=== PATIENT | female | born 1990 | race African-American/Black ===

== ENCOUNTER 2016-08-10 20:28 | Emergency (ER) | payer OTHER ==
[2016-08-10] MEDS ORDERED: ONDANSETRON ODT 4 MG TAB PO STA (21:23)
[2016-08-10] MEDS ORDERED: DICYCLOMINE 20 MG TAB PO STA (21:23)
--- NOTE | 2016-08-10 21:29 | ED ---
Nausea/Vomiting/Diarrhea HPI - General Chief complaint: Nausea/Vomiting/Diarrhea Stated complaint: Nausea Time Seen by Provider: 08/10/16 21:10 Source: patient Mode of arrival: ambulatory Limitations: no limitations - History of Present Illness Initial comments: This patient is a 25-year-old woman who presents to be evaluated because she has not been feeling quite herself for a few days now. The patient states she has been feeling nauseated, she has also had a little bit of a bilateral lower quadrant bloating feeling. At one point earlier when she stood up she felt a little bit lightheaded like she was going to faint. She states that she sat back down again and did not faint and the sensation passed. The patient also has been having some irregular menstrual spotting going on for about 3 weeks. The patient state states it is possible she may be or she thinks she may have eaten something that was not quite right. Patient denies fever or chills. She did have an episode of vomiting 2 days ago but nothing since though she does remain nauseated. Patient denies change to her bowel movements , but states she may be a little constipated. MD complaint: nausea, vomiting Onset/Timin -: days(s) - Related Data Previous Rx's Medication Instructions Recorded Ondansetron Odt [Zofran ODT] 4 mg PO Q8HR PRN #10 tab 08/10/16 Allergies Allergy/AdvReac Type Severity Reaction Status Date / Time No Known Allergies Allergy Verified 08/10/16 21:14 Review of Systems ROS Statement: Those systems with pertinent positive or pertinent negative responses have been documented in the HPI. ROS Other: All systems not noted in ROS Statement are negative. Constitutional: Denies: fever, chills Respiratory: Denies: cough, dyspnea Cardiovascular: Denies: chest pain, palpitations, orthopnea, edema, syncope Gastrointestinal: Reports: as per HPI, abdominal pain, nausea, vomiting, constipation. Denies: diarrhea, hematemesis, melena, hematochezia Genitourinary: Denies: dysuria, hematuria Musculoskeletal: Denies: back pain Skin: Denies: rash Neurological: Denies: headache, weakness, abnormal gait, vertigo Past Medical History Past Medical History: No Reported History History of Any Multi-Drug Resistant Organisms: None Reported Past Surgical History: No Surgical Hx Reported Past Anesthesia/Blood Transfusion Reactions: No Reported Reaction Past Psychological History: Anxiety, Bipolar, Depression Smoking Status: Never smoker Past Alcohol Use History: Rare Past Drug Use History: Marijuana - Past Family History Father Family Medical History: No Reported History Mother Family Medical History: Unable to Obtain Brother(s) Family Medical History: No Reported History General Exam Limitations: no limitations General appearance: alert, in no apparent distress Head exam: Present: atraumatic, normocephalic Eye exam: Present: normal appearance, PERRL, EOMI. Absent: scleral icterus, conjunctival injection, nystagmus ENT exam: Present: normal oropharynx, mucous membranes moist Neck exam: Present: normal inspection Respiratory exam: Present: normal lung sounds bilaterally. Absent: respiratory distress, wheezes, rales, rhonchi, stridor Cardiovascular Exam: Present: regular rate, normal rhythm, normal heart sounds. Absent: systolic murmur, diastolic murmur, rubs, gallop GI/Abdominal exam: Present: soft, normal bowel sounds. Absent: distended, tenderness, guarding, rebound, organomegaly, mass, pulsatile mass, hernia Extremities exam: Present: normal inspection, normal capillary refill. Absent: pedal edema, calf tenderness Back exam: Present: normal inspection. Absent: CVA tenderness (R), CVA tenderness (L) Skin exam: Present: warm, dry, intact, normal color. Absent: rash Course Vital Signs 08/10/16 21:04 Temperature 98.1 F Pulse Rate 80 Respiratory 18 Rate Blood Pressure 99/73 O2 Sat by Pulse 98 Oximetry Medical Decision Making - Lab Data Result diagrams: 08/10/16 22:10 08/10/16 22:10 Lab Results 08/10/16 08/10/16 08/10/16 Range/Units 21:10 21:10 22:10 WBC (3.8-10.6) k/uL RBC (3.80-5.40) m/uL Hgb (11.4-16.0) gm/dL Hct (34.0-46.0) % MCV (80.0-100.0) fL MCH (25.0-35.0) pg MCHC (31.0-37.0) g/dL RDW (11.5-15.5) % Plt Count (150-450) k/uL Neutrophils % % Lymphocytes % % Monocytes % % Eosinophils % % Basophils % % Neutrophils # (1.3-7.7) k/uL Lymphocytes # (1.0-4.8) k/uL Monocytes # (0-1.0) k/uL Eosinophils # (0-0.7) k/uL Basophils # (0-0.2) k/uL Sodium 140 (137-145) mmol/L Potassium 4.3 (3.5-5.1) mmol/L Chloride 110 H (98-107) mmol/L Carbon Dioxide 24 (22-30) mmol/L Anion Gap 6 mmol/L BUN 16 (7-17) mg/dL Creatinine 0.70 (0.52-1.04) mg/dL Est GFR (MDRD) Af Amer >60 (>60 ml/min/1.73 sqM) Est GFR (MDRD) Non-Af >60 (>60 ml/min/1.73 sqM) Glucose 87 (74-99) mg/dL Calcium 9.4 (8.4-10.2) mg/dL Total Bilirubin 0.2 (0.2-1.3) mg/dL AST 17 (14-36) U/L ALT 29 (9-52) U/L Alkaline Phosphatase 55 (38-126) U/L Total Protein 6.6 (6.3-8.2) g/dL Albumin 3.8 (3.5-5.0) g/dL Amylase 57 (30-110) U/L Lipase 100 (23-300) U/L Urine Color Yellow Urine Appearance Cloudy H (Clear) Urine pH 6.0 (5.0-8.0) Ur Specific [place] 1.022 (1.001-1.035) Urine Protein Trace H (Negative) Urine Glucose (UA) Negative (Negative) Urine Ketones Negative (Negative) Urine Blood Moderate H (Negative) Urine Nitrite Negative (Negative) Urine Bilirubin Negative (Negative) Urine Urobilinogen 2.0 (<2.0) mg/dL Ur Leukocyte Esterase Moderate H (Negative) Urine RBC 1 (0-5) /hpf Urine WBC 4 (0-5) /hpf Ur Squamous Epith Cells 4 (0-4) /hpf Hyaline Casts 1 (0-2) /lpf Urine Mucus Many H (None) /hpf Urine HCG, Qual Not Detected (Not Detectd) 08/10/16 Range/Units 22:10 WBC 5.8 (3.8-10.6) k/uL RBC 3.39 L (3.80-5.40) m/uL Hgb 10.5 L (11.4-16.0) gm/dL Hct 31.2 L (34.0-46.0) % MCV 91.9 (80.0-100.0) fL MCH 30.9 (25.0-35.0) pg MCHC 33.7 (31.0-37.0) g/dL RDW 13.7 (11.5-15.5) % Plt Count 301 (150-450) k/uL Neutrophils % 60 % Lymphocytes % 29 % Monocytes % 7 % Eosinophils % 2 % Basophils % 0 % Neutrophils # 3.5 (1.3-7.7) k/uL Lymphocytes # 1.7 (1.0-4.8) k/uL Monocytes # 0.4 (0-1.0) k/uL Eosinophils # 0.1 (0-0.7) k/uL Basophils # 0.0 (0-0.2) k/uL Sodium (137-145) mmol/L Potassium (3.5-5.1) mmol/L Chloride (98-107) mmol/L Carbon Dioxide (22-30) mmol/L Anion Gap mmol/L BUN (7-17) mg/dL Creatinine (0.52-1.04) mg/dL Est GFR (MDRD) Af Amer (>60 ml/min/1.73 sqM) Est GFR (MDRD) Non-Af (>60 ml/min/1.73 sqM) Glucose (74-99) mg/dL Calcium (8.4-10.2) mg/dL Total Bilirubin (0.2-1.3) mg/dL AST (14-36) U/L ALT (9-52) U/L Alkaline Phosphatase (38-126) U/L Total Protein (6.3-8.2) g/dL Albumin (3.5-5.0) g/dL Amylase (30-110) U/L Lipase (23-300) U/L Urine Color Urine Appearance (Clear) Urine pH (5.0-8.0) Ur Specific [place] (1.001-1.035) Urine Protein (Negative) Urine Glucose (UA) (Negative) Urine Ketones (Negative) Urine Blood (Negative) Urine Nitrite (Negative) Urine Bilirubin (Negative) Urine Urobilinogen (<2.0) mg/dL Ur Leukocyte Esterase (Negative) Urine RBC (0-5) /hpf Urine WBC (0-5) /hpf Ur Squamous Epith Cells (0-4) /hpf Hyaline Casts (0-2) /lpf Urine Mucus (None) /hpf Urine HCG, Qual (Not Detectd) Disposition Clinical Impression: Nausea Disposition: HOME SELF-CARE Condition: Good Instructions: Acute Nausea and Vomiting (ED) Prescriptions: Ondansetron Odt [Zofran ODT] 4 mg PO Q8HR PRN #10 tab PRN Reason: Nausea Referrals: None,Stated [Primary Care Provider] - 1-2 days
[2016-08-10 21:35] LABS: Appearance,Urine Cloudy (Clear); Bilirubin,Urine Negative (Negative); Glucose,Urine (UA) Negative (Negative); Ketones,Urine Negative (Negative); Leukocyte Esterase,Urine Moderate (Negative); Mucus,Urine Many /hpf; Nitrite,Urine Negative (Negative); Particle Count 11816; Protein,Urine Trace (Negative); RBC,Urine 1 /hpf (0-5); Specific Gravity,Urine 1.022 (1.001-1.035); Squamous Epithelial Cell,Urine 4 /hpf (0-4); UA Billing (MACRO vs. MICRO) MICRO; WBC,Urine 4 /hpf (0-5)
[2016-08-10] MEDS ORDERED: SODIUM CHLORIDE 0.9% 1,000 ML IV STA (22:04)
[2016-08-10 22:27] LABS: Basophils % (A) 0 %; CH 31.1; CHCM 33.9; Eosinophils # (A) 0.1 k/uL (0-0.7); Eosinophils % (A) 2 %; HCT 31.2 % (34.0-46.0); HDW 2.87; HGB 10.5 gm/dL (11.4-16.0); Luc # (Auto) 0.17; Luc % (Auto) 3; Lymphocytes # (A) 1.7 k/uL (1.0-4.8); Lymphocytes % (A) 29 %; MCH 30.9 pg (25.0-35.0); MCHC 33.7 g/dL (31.0-37.0); MCV 91.9 fL (80.0-100.0); Mean Platelet Volume 7.3; Monocytes # (A) 0.4 k/uL (0-1.0); Monocytes % (A) 7 %; Neutrophils # (A) 3.5 k/uL (1.3-7.7); Neutrophils % (A) 60 %; RBC 3.39 m/uL (3.80-5.40); RDW 13.7 % (11.5-15.5); WBC 5.8 k/uL (3.8-10.6); WBC (Perox) 5.97
[2016-08-10 22:44] LABS: ALT 29 U/L (9-52); AST 17 U/L (14-36); Alkaline Phosphatase 55 U/L (38-126); Amylase 57 U/L (30-110); Anion Gap 6 mmol/L; Blood Urea Nitrogen 16 mg/dL (7-17); Calcium 9.4 mg/dL (8.4-10.2); Carbon Dioxide 24 mmol/L (22-30); Chloride 110 mmol/L (98-107); Glucose 87 mg/dL (74-99); Non-African American GFR(MDRD) >60 (>60 ml/min/1.73 sqM); Potassium 4.3 mmol/L (3.5-5.1); Sodium 140 mmol/L (137-145); Total Bilirubin 0.2 mg/dL (0.2-1.3); Total Protein 6.6 g/dL (6.3-8.2)
[2016-08-10 23:27] VITALS: BP 101/59; PULSE 76; RESP 16; TEMP 97.5
== END 2016-08-10 23:15 | disposition home or self-care (01) ==
LOC: EC 20:28
DX: R11.0 Nausea (principal); R10.31 Right lower quadrant pain; R10.32 Left lower quadrant pain; R42 Dizziness and giddiness
CPT/HCPCS: 36415; 80053; 81001; 81025; 82150; 83690; 85025; 96360; 99283

== ENCOUNTER 2018-04-23 23:31 | Emergency (ER) | payer OTHER ==
[2018-04-23 23:36] VITALS: RESP 16
[2018-04-24] MEDS ORDERED: ONDANSETRON 4 MG/2 ML VIAL IVP STA
[2018-04-24] MEDS ORDERED: SODIUM CHLORIDE 0.9% 1,000 ML IV STA
[2018-04-24] MEDS ORDERED: KETOROLAC 30 MG/ML 1 ML VIAL IVP STA
[2018-04-24] MEDS ORDERED: FAMOTIDINE 20 MG/2 ML VIAL IV STA
[2018-04-24] MEDS ORDERED: MAG HYDROX/AL HYDROX/SIMETH 30 ML, HYOSCYAMINE ELIXIR 10 ML, CIMETIDINE HCL 300 MG, LID... PO STA ×4 (00:01)
--- NOTE | 2018-04-24 00:03 | ED ---
General Adult HPI - General Chief complaint: Abdominal Pain Stated complaint: Abd Pain Time Seen by Provider: 04/23/18 23:42 Source: patient, RN notes reviewed Mode of arrival: ambulatory Limitations: no limitations - History of Present Illness Initial comments: 27-year-old female presents to the emergency department for a chief complaint of abdominal pain 3 weeks. Patient states the pain as a sharp burning pain in the upper abdomen that radiates down to the lower abdomen. Patient states this pain is worse after she eats. Patient denies a history of stomach ulcers. She admits to nausea but denies vomiting. She has had normal bowel movements. She denies fevers or chills.Patient has no other complaints at this time including shortness of breath, chest pain, vomiting, headache, or visual changes. - Related Data Previous Rx's Medication Instructions Recorded Ondansetron Odt [Zofran ODT] 4 mg PO Q8HR PRN #10 tab 08/10/16 Famotidine [Pepcid] 20 mg PO BID #20 tablet 04/24/18 Allergies Allergy/AdvReac Type Severity Reaction Status Date / Time No Known Allergies Allergy Verified 04/23/18 23:36 Review of Systems ROS Statement: Those systems with pertinent positive or pertinent negative responses have been documented in the HPI. ROS Other: All systems not noted in ROS Statement are negative. Past Medical History Past Medical History: No Reported History History of Any Multi-Drug Resistant Organisms: None Reported Past Surgical History: No Surgical Hx Reported Past Anesthesia/Blood Transfusion Reactions: No Reported Reaction Past Psychological History: Anxiety, Bipolar, Depression Smoking Status: Never smoker Past Alcohol Use History: Rare Past Drug Use History: Marijuana - Past Family History Father Family Medical History: No Reported History Mother Family Medical History: Unable to Obtain Brother(s) Family Medical History: No Reported History General Exam Limitations: no limitations General appearance: alert, in no apparent distress Head exam: Present: atraumatic, normocephalic, normal inspection Eye exam: Present: normal appearance, PERRL, EOMI. Absent: scleral icterus, conjunctival injection, periorbital swelling ENT exam: Present: normal exam, mucous membranes moist Neck exam: Present: normal inspection, full ROM. Absent: tenderness, meningismus, lymphadenopathy, thyromegaly Respiratory exam: Present: normal lung sounds bilaterally. Absent: respiratory distress, wheezes, rales, rhonchi, stridor Cardiovascular Exam: Present: regular rate, normal rhythm, normal heart sounds. Absent: systolic murmur, diastolic murmur, rubs, gallop, clicks GI/Abdominal exam: Present: soft, tenderness (mild Tenderness throughout the abdomen however worse in the epigastric area. Right upper quadrant Tenderness negative Elaine sign.), normal bowel sounds. Absent: distended, guarding, rebound, rigid Neurological exam: Present: alert, oriented X3, CN II-XII intact Psychiatric exam: Present: normal affect, normal mood Course Vital Signs 04/23/18 23:33 Temperature 98.6 F Pulse Rate 89 Respiratory 16 Rate Blood Pressure 117/83 O2 Sat by Pulse 99 Oximetry Medical Decision Making - Medical Decision Making 27-year-old female presents to the emergency room for a chief complaint of upper abdominal pain. Patient states the pain is in epigastric and right upper quadrant area. CBC is unremarkable. CMP does show mild transaminitis. Urine is negative. Given the CMP changes ultrasound was ordered which did show gallbladder sludge without definite stones. No cholecystitis. X-ray was also ordered to rule out free air which showed normal abdominal x-rays. Patient's pain likely from gallbladder dysfunction. Patient will follow up with surgery. She will also be put on Pepcid if there is any component of ulcer contributing to this pain. She will return here if she has any worsening symptoms. - Lab Data Result diagrams: 04/23/18 23:50 04/23/18 23:50 Lab Results 04/23/18 04/23/18 04/23/18 Range/Units 23:50 23:50 23:50 WBC 5.4 (3.8-10.6) k/uL RBC 4.31 (3.80-5.40) m/uL Hgb 13.4 (11.4-16.0) gm/dL Hct 40.0 (34.0-46.0) % MCV 92.7 (80.0-100.0) fL MCH 31.1 (25.0-35.0) pg MCHC 33.6 (31.0-37.0) g/dL RDW 13.0 (11.5-15.5) % Plt Count 376 (150-450) k/uL Neutrophils % 58 % Lymphocytes % 20 % Monocytes % 12 % Eosinophils % 6 % Basophils % 1 % Neutrophils # 3.1 (1.3-7.7) k/uL Lymphocytes # 1.1 (1.0-4.8) k/uL Monocytes # 0.6 (0-1.0) k/uL Eosinophils # 0.3 (0-0.7) k/uL Basophils # 0.0 (0-0.2) k/uL Sodium 138 (137-145) mmol/L Potassium 4.1 (3.5-5.1) mmol/L Chloride 106 (98-107) mmol/L Carbon Dioxide 23 (22-30) mmol/L Anion Gap 9 mmol/L BUN 9 (7-17) mg/dL Creatinine 0.49 L (0.52-1.04) mg/dL Est GFR (CKD-EPI)AfAm >90 (>60 ml/min/1.73 sqM) Est GFR (CKD-EPI)NonAf >90 (>60 ml/min/1.73 sqM) Glucose 123 H (74-99) mg/dL Calcium 9.4 (8.4-10.2) mg/dL Total Bilirubin 0.5 (0.2-1.3) mg/dL AST 85 H (14-36) U/L ALT 97 H (9-52) U/L Alkaline Phosphatase 209 H (38-126) U/L Total Protein 7.5 (6.3-8.2) g/dL Albumin 4.0 (3.5-5.0) g/dL Amylase 111 H (30-110) U/L Lipase 59 (23-300) U/L Urine Color Urine Appearance (Clear) Urine pH (5.0-8.0) Ur Specific [place] (1.001-1.035) Urine Protein (Negative) Urine Glucose (UA) (Negative) Urine Ketones (Negative) Urine Blood (Negative) Urine Nitrite (Negative) Urine Bilirubin (Negative) Urine Urobilinogen (<2.0) mg/dL Ur Leukocyte Esterase (Negative) Urine RBC (0-5) /hpf Urine WBC (0-5) /hpf Ur Squamous Epith Cells (0-4) /hpf Urine Mucus (None) /hpf Urine HCG, Qual Not Detected (Not Detectd) 04/23/18 Range/Units 23:50 WBC (3.8-10.6) k/uL RBC (3.80-5.40) m/uL Hgb (11.4-16.0) gm/dL Hct (34.0-46.0) % MCV (80.0-100.0) fL MCH (25.0-35.0) pg MCHC (31.0-37.0) g/dL RDW (11.5-15.5) % Plt Count (150-450) k/uL Neutrophils % % Lymphocytes % % Monocytes % % Eosinophils % % Basophils % % Neutrophils # (1.3-7.7) k/uL Lymphocytes # (1.0-4.8) k/uL Monocytes # (0-1.0) k/uL Eosinophils # (0-0.7) k/uL Basophils # (0-0.2) k/uL Sodium (137-145) mmol/L Potassium (3.5-5.1) mmol/L Chloride (98-107) mmol/L Carbon Dioxide (22-30) mmol/L Anion Gap mmol/L BUN (7-17) mg/dL Creatinine (0.52-1.04) mg/dL Est GFR (CKD-EPI)AfAm (>60 ml/min/1.73 sqM) Est GFR (CKD-EPI)NonAf (>60 ml/min/1.73 sqM) Glucose (74-99) mg/dL Calcium (8.4-10.2) mg/dL Total Bilirubin (0.2-1.3) mg/dL AST (14-36) U/L ALT (9-52) U/L Alkaline Phosphatase (38-126) U/L Total Protein (6.3-8.2) g/dL Albumin (3.5-5.0) g/dL Amylase (30-110) U/L Lipase (23-300) U/L Urine Color Yellow Urine Appearance Cloudy H (Clear) Urine pH 6.0 (5.0-8.0) Ur Specific [place] 1.009 (1.001-1.035) Urine Protein Negative (Negative) Urine Glucose (UA) Negative (Negative) Urine Ketones Negative (Negative) Urine Blood Negative (Negative) Urine Nitrite Negative (Negative) Urine Bilirubin Negative (Negative) Urine Urobilinogen <2.0 (<2.0) mg/dL Ur Leukocyte Esterase Negative (Negative) Urine RBC 1 (0-5) /hpf Urine WBC 3 (0-5) /hpf Ur Squamous Epith Cells 15 H (0-4) /hpf Urine Mucus Many H (None) /hpf Urine HCG, Qual (Not Detectd) Disposition Clinical Impression: Gallbladder sludge Disposition: HOME SELF-CARE Condition: Good Instructions (If sedation given, give patient instructions): Biliary Colic (ED) Additional Instructions: Please take Pepcid as directed. Please follow-up with Gen. surgery in 1-2 days. Please return here for any worsening symptoms. Prescriptions: Famotidine [Pepcid] 20 mg PO BID #20 tablet Is patient prescribed a controlled substance at d/c from ED?: No Referrals: Alissa Cherry MD [REFERRING] - 1-2 days Justino Brewer DO [Doctor of Osteopathic Medicine] - 1-2 days Time of Disposition: 02:22
[2018-04-24 00:17] LABS: Basophils % (A) 1 %; Eosinophils # (A) 0.3 k/uL (0-0.7); Eosinophils % (A) 6 %; HGB 13.4 gm/dL (11.4-16.0); Lymphocytes # (A) 1.1 k/uL (1.0-4.8); Lymphocytes % (A) 20 %; MCH 31.1 pg (25.0-35.0); MCHC 33.6 g/dL (31.0-37.0); MCV 92.7 fL (80.0-100.0); Mean Platelet Volume 6.8; Monocytes # (A) 0.6 k/uL (0-1.0); Monocytes % (A) 12 %; Neutrophils # (A) 3.1 k/uL (1.3-7.7); Neutrophils % (A) 58 %; Platelet Count 376 k/uL (150-450); RBC 4.31 m/uL (3.80-5.40); WBC 5.4 k/uL (3.8-10.6)
[2018-04-24 00:20] LABS: Appearance,Urine Cloudy (Clear); Bilirubin,Urine Negative (Negative); Blood,Urine Negative (Negative); Color,Urine Yellow; Glucose,Urine (UA) Negative (Negative); Ketones,Urine Negative (Negative); Leukocyte Esterase,Urine Negative (Negative); Mucus,Urine Many /hpf; Nitrite,Urine Negative (Negative); Protein,Urine Negative (Negative); RBC,Urine 1 /hpf (0-5); Specific Gravity,Urine 1.009 (1.001-1.035); Squamous Epithelial Cell,Urine 15 /hpf (0-4); Urobilinogen,Urine <2.0 mg/dL (<2.0); WBC,Urine 3 /hpf (0-5)
[2018-04-24 00:26] LABS: ALT 97 U/L (9-52); AST 85 U/L (14-36); Alkaline Phosphatase 209 U/L (38-126); Amylase 111 U/L (30-110); Anion Gap 9 mmol/L; Blood Urea Nitrogen 9 mg/dL (7-17); Calcium 9.4 mg/dL (8.4-10.2); Carbon Dioxide 23 mmol/L (22-30); Chloride 106 mmol/L (98-107); Glucose 123 mg/dL (74-99); Lipase 59 U/L (23-300); Potassium 4.1 mmol/L (3.5-5.1); Sodium 138 mmol/L (137-145); Total Bilirubin 0.5 mg/dL (0.2-1.3); Total Protein 7.5 g/dL (6.3-8.2)
--- NOTE | 2018-04-24 01:23 | US ---
EXAM: US Abdomen Limited, Right Upper Quadrant CLINICAL HISTORY: ITS.REASON US Reason: Pain TECHNIQUE: Real-time ultrasound of the right upper quadrant with image documentation. COMPARISON: No relevant prior studies available. FINDINGS: Liver: Unremarkable. No mass. No intrahepatic bile duct dilation. Gallbladder: Gallbladder sludge without definite stones. Common bile duct: Unremarkable as visualized. No stones. No dilation. Pancreas: Unremarkable as visualized. Right kidney: Unremarkable. No stones. No solid mass. No hydronephrosis. IMPRESSION: Gallbladder sludge without definite stones. No cholecystitis.
--- NOTE | 2018-04-24 01:30 | XR ---
EXAM: XR Abdomen, 2 Views CLINICAL HISTORY: ITS.REASON XR Reason: Pain TECHNIQUE: Frontal view of the abdomen/pelvis with upright view of the abdomen. COMPARISON: No relevant prior studies available. FINDINGS: Intraperitoneal space: No free air. Gastrointestinal tract: Unremarkable. No dilation. Bones/joints: Unremarkable. IMPRESSION: Normal abdominal x-rays.
[2018-04-24 02:22] VITALS: BP 100/59; PULSE 61; TEMP 97.4
== END 2018-04-24 02:30 | disposition home or self-care (01) ==
LOC: EC 23:31
DX: K82.8 Other specified diseases of gallbladder (principal); R74.0 Nonspecific elevation of levels of transaminase and lactic acid dehydrogenase [LDH]
CPT/HCPCS: 36415; 80053; 82150; 83690; 85025; 81001; 81025; 74019; 76705; 99284; 96374; 96375 ×2; 96361; J2405; J1885

== ENCOUNTER 2018-04-26 08:28 | Emergency (ER) | payer OTHER ==
[2018-04-26 08:34] VITALS: RESP 18
[2018-04-26] MEDS ORDERED: HYDROmorphone 0.5 MG/0.5 ML SYRINGE IVP STA (08:47)
[2018-04-26] MEDS ORDERED: ONDANSETRON 4 MG/2 ML VIAL IVP STA (08:47)
[2018-04-26] MEDS ORDERED: SODIUM CHLORIDE 0.9% 500 ML 500 ML IV STA (08:47)
--- NOTE | 2018-04-26 08:49 | ED ---
General Adult HPI - General Chief complaint: Abdominal Pain Stated complaint: Gallbladder Time Seen by Provider: 04/26/18 08:35 Source: patient, RN notes reviewed Mode of arrival: ambulatory Limitations: no limitations - History of Present Illness Initial comments: This is a 27-year-old female who presents emergency Department with right upper quadrant abdominal pain and vomiting since yesterday. Patient was recently seen in emergency department couple of days ago and was told showed sludge or gallbladder. Patient states since then the pain is not gone away and got worse as of last night. Patient states the vomiting has been constant. Patient denies any diarrhea. Patient denies any fever or chills. Patient states she was postictal follow-up today but she was in too much pain just came to the emergency department. Patient denies any chest pain difficulty breathing first breath. Patient denies any headache patient denies numbness weakness. Patient denies any dysuria hematuria urinary frequency. Patient states she cannot be . - Related Data Home Medications Medication Instructions Recorded Confirmed Multivitamin,Therapeutic [Thera] 1 tab PO DAILY 04/26/18 04/26/18 Allergies Allergy/AdvReac Type Severity Reaction Status Date / Time No Known Allergies Allergy Verified 04/26/18 08:54 Review of Systems ROS Statement: Those systems with pertinent positive or pertinent negative responses have been documented in the HPI. ROS Other: All systems not noted in ROS Statement are negative. Past Medical History Past Medical History: No Reported History History of Any Multi-Drug Resistant Organisms: None Reported Past Surgical History: No Surgical Hx Reported Past Anesthesia/Blood Transfusion Reactions: No Reported Reaction Past Psychological History: Anxiety, Bipolar, Depression Smoking Status: Never smoker Past Alcohol Use History: Rare Past Drug Use History: Marijuana - Past Family History Father Family Medical History: No Reported History Mother Family Medical History: Unable to Obtain Brother(s) Family Medical History: No Reported History General Exam - General Exam Comments Initial Comments: GENERAL: Patient is well-developed and well-nourished. Patient is nontoxic and well- hydrated and is in mild distress. ENT: Neck is soft and supple. No significant lymphadenopathy is noted. Oropharynx is clear. Moist mucous membranes. Neck has full range of motion without eliciting any pain. EYES: The sclera were anicteric and conjunctiva were pink and moist. Extraocular movements were intact and pupils were equal round and reactive to light. Eyelids were unremarkable. PULMONARY: Unlabored respirations. Good breath sounds bilaterally. No audible rales rhonchi or wheezing was noted. CARDIOVASCULAR: There is a regular rate and rhythm without any murmurs gallops or rubs. ABDOMEN: Patient has minimal right upper quadrant abdominal pain SKIN: Skin is clear with no lesions or rashes and otherwise unremarkable. NEUROLOGIC: Patient is alert and oriented x3. Cranial nerves II through XII are grossly intact. Motor and sensory are also intact. Normal speech, volume and content. Symmetrical smile. MUSCULOSKELETAL: Normal extremities with adequate strength and full range of motion. No lower extremity swelling or edema. No calf tenderness. LYMPHATICS: No significant lymphadenopathy is noted PSYCHIATRIC: Normal psychiatric evaluation. Limitations: no limitations Course Vital Signs 04/26/18 08:32 Temperature 98 F Pulse Rate 58 L Respiratory 18 Rate Blood Pressure 141/81 O2 Sat by Pulse 100 Oximetry Medical Decision Making - Medical Decision Making I reviewed the patient's old charts and lab work. I went back in the room twice to evaluate the patient while she was in the emergency department and on both occasions patient was sleeping and resting comfortably. Patient also has not vomited in the emergency department. Once labs were all back I discussed with the patient that she needed to follow up with her surgeon since the pain was only minimal and there have been no changes in the lab work since her last visit. - Lab Data Result diagrams: 04/26/18 08:47 04/26/18 08:47 Lab Results 04/26/18 04/26/18 Range/Units 08:47 08:47 WBC 6.2 (3.8-10.6) k/uL RBC 4.28 (3.80-5.40) m/uL Hgb 13.4 (11.4-16.0) gm/dL Hct 39.5 (34.0-46.0) % MCV 92.4 (80.0-100.0) fL MCH 31.4 (25.0-35.0) pg MCHC 34.0 (31.0-37.0) g/dL RDW 12.9 (11.5-15.5) % Plt Count 378 (150-450) k/uL Neutrophils % 82 % Lymphocytes % 12 % Monocytes % 2 % Eosinophils % 3 % Basophils % 0 % Neutrophils # 5.1 (1.3-7.7) k/uL Lymphocytes # 0.7 L (1.0-4.8) k/uL Monocytes # 0.1 (0-1.0) k/uL Eosinophils # 0.2 (0-0.7) k/uL Basophils # 0.0 (0-0.2) k/uL Sodium 139 (137-145) mmol/L Potassium 4.0 (3.5-5.1) mmol/L Chloride 105 (98-107) mmol/L Carbon Dioxide 22 (22-30) mmol/L Anion Gap 12 mmol/L BUN 11 (7-17) mg/dL Creatinine 0.56 (0.52-1.04) mg/dL Est GFR (CKD-EPI)AfAm >90 (>60 ml/min/1.73 sqM) Est GFR (CKD-EPI)NonAf >90 (>60 ml/min/1.73 sqM) Glucose 111 H (74-99) mg/dL Calcium 10.2 (8.4-10.2) mg/dL Total Bilirubin 0.7 (0.2-1.3) mg/dL AST 63 H (14-36) U/L ALT 95 H (9-52) U/L Alkaline Phosphatase 253 H (38-126) U/L Total Protein 8.2 (6.3-8.2) g/dL Albumin 4.5 (3.5-5.0) g/dL Amylase 91 (30-110) U/L Lipase 31 (23-300) U/L Disposition Clinical Impression: Biliary colic Disposition: HOME SELF-CARE Condition: Good Instructions (If sedation given, give patient instructions): Biliary Colic (ED) Additional Instructions: Patient is to follow-up with Dr. Brewer as previously instructed Is patient prescribed a controlled substance at d/c from ED?: No Referrals: Justino Brewer DO [Doctor of Osteopathic Medicine] - 1-2 days Time of Disposition: 09:37
[2018-04-26 09:02] LABS: Basophils % (A) 0 %; Eosinophils # (A) 0.2 k/uL (0-0.7); Eosinophils % (A) 3 %; HCT 39.5 % (34.0-46.0); HGB 13.4 gm/dL (11.4-16.0); Lymphocytes # (A) 0.7 k/uL (1.0-4.8); Lymphocytes % (A) 12 %; MCH 31.4 pg (25.0-35.0); MCV 92.4 fL (80.0-100.0); Mean Platelet Volume 7.9; Monocytes # (A) 0.1 k/uL (0-1.0); Monocytes % (A) 2 %; Neutrophils # (A) 5.1 k/uL (1.3-7.7); Neutrophils % (A) 82 %; Platelet Count 378 k/uL (150-450); RBC 4.28 m/uL (3.80-5.40); RDW 12.9 % (11.5-15.5); WBC 6.2 k/uL (3.8-10.6)
[2018-04-26 09:09] LABS: ALT 95 U/L (9-52); AST 63 U/L (14-36); Albumin 4.5 g/dL (3.5-5.0); Alkaline Phosphatase 253 U/L (38-126); Amylase 91 U/L (30-110); Anion Gap 12 mmol/L; Blood Urea Nitrogen 11 mg/dL (7-17); Calcium 10.2 mg/dL (8.4-10.2); Carbon Dioxide 22 mmol/L (22-30); Chloride 105 mmol/L (98-107); Glucose 111 mg/dL (74-99); Lipase 31 U/L (23-300); Sodium 139 mmol/L (137-145); Total Bilirubin 0.7 mg/dL (0.2-1.3); Total Protein 8.2 g/dL (6.3-8.2)
[2018-04-26] MEDS ORDERED: ONDANSETRON 4 MG ODT STARTER PACK 2 TAB BTL PO STA (09:38)
[2018-04-26 10:03] VITALS: BP 98/54; PULSE 61; TEMP 98.3
== END 2018-04-26 10:00 | disposition home or self-care (01) ==
LOC: EC 08:28
DX: K80.50 Calculus of bile duct without cholangitis or cholecystitis without obstruction (principal)
CPT/HCPCS: 36415; 80053; 82150; 83690; 85025; 99284; 96374; 96375; 96361; J2405; S0119; J1170

== ENCOUNTER 2018-04-28 22:40 | Observation (INO) | payer OTHER ==
[2018-04-28] MEDS ORDERED: MORPHINE SULFATE 4 MG/ML SYRINGE IV STA (22:47)
[2018-04-28] MEDS ORDERED: ONDANSETRON 4 MG/2 ML VIAL IVP STA (22:47)
[2018-04-28] MEDS ORDERED: SODIUM CHLORIDE 0.9% 1,000 ML IV STA (22:47)
[2018-04-28] MEDS ORDERED: KETOROLAC 30 MG/ML 1 ML VIAL IVP STA (22:47)
[2018-04-28 23:19] LABS: Basophils % (A) 0 %; Eosinophils # (A) 0.3 k/uL (0-0.7); Eosinophils % (A) 5 %; HCT 41.1 % (34.0-46.0); HGB 13.8 gm/dL (11.4-16.0); Lymphocytes # (A) 1.1 k/uL (1.0-4.8); Lymphocytes % (A) 19 %; MCH 30.7 pg (25.0-35.0); MCHC 33.6 g/dL (31.0-37.0); MCV 91.5 fL (80.0-100.0); Mean Platelet Volume 7.6; Monocytes # (A) 0.7 k/uL (0-1.0); Monocytes % (A) 12 %; Neutrophils # (A) 3.4 k/uL (1.3-7.7); Neutrophils % (A) 61 %; Platelet Count 402 k/uL (150-450); RDW 12.7 % (11.5-15.5); WBC 5.6 k/uL (3.8-10.6)
--- NOTE | 2018-04-28 23:20 | ED ---
Abdominal Pain HPI - General Chief Complaint: Abdominal Pain Stated Complaint: Gallbladder issues Time Seen by Provider: 04/28/18 22:47 Source: patient, RN notes reviewed, old records reviewed Mode of arrival: ambulatory Limitations: no limitations - History of Present Illness Initial Comments: This is a 27-year-old female the ER for evasive Doppler pain right upper quadrant abdominal pain no significant history of prior. No significant surgical history. No travel history no fevers. Mild nausea no vomiting no diarrhea. MD Complaint: abdominal pain (ruq) -: days(s), week(s) Location: RUQ, epigastric Radiation: RUQ, epigastric, R flank Migration to: RUQ Severity: moderate Severity scale (1-10): 5 Quality: aching Consistency: colicky Improves With: nothing Worsens With: eating Associated Symptoms: nausea Treatments Prior to Arrival: NSAIDs - Related Data Home Medications Medication Instructions Recorded Confirmed Multivitamin,Therapeutic [Thera] 1 tab PO DAILY 04/26/18 04/28/18 Previous Rx's Medication Instructions Recorded Docusate [Colace] 100 mg PO BID #30 capsule 04/30/18 HYDROcodone/APAP 7.5-325MG [White 1 tab PO Q4H PRN 3 Days #18 tab 04/30/18 7.5-325] Allergies Allergy/AdvReac Type Severity Reaction Status Date / Time No Known Allergies Allergy Verified 04/28/18 22:52 Review of Systems ROS Statement: Those systems with pertinent positive or pertinent negative responses have been documented in the HPI. ROS Other: All systems not noted in ROS Statement are negative. Past Medical History Past Medical History: No Reported History History of Any Multi-Drug Resistant Organisms: None Reported Past Surgical History: No Surgical Hx Reported Past Anesthesia/Blood Transfusion Reactions: No Reported Reaction Past Psychological History: Anxiety, Bipolar, Depression Smoking Status: Never smoker Past Alcohol Use History: Rare Past Drug Use History: Marijuana - Past Family History Father Family Medical History: No Reported History Mother Family Medical History: Unable to Obtain Brother(s) Family Medical History: No Reported History General Exam Limitations: no limitations General appearance: alert, in no apparent distress Head exam: Present: atraumatic, normocephalic, normal inspection Eye exam: Present: normal appearance, PERRL, EOMI. Absent: scleral icterus, conjunctival injection, periorbital swelling ENT exam: Present: normal exam, mucous membranes moist Neck exam: Present: normal inspection. Absent: tenderness, meningismus, lymphadenopathy Respiratory exam: Present: normal lung sounds bilaterally. Absent: respiratory distress, wheezes, rales, rhonchi, stridor Cardiovascular Exam: Present: regular rate, normal rhythm, normal heart sounds. Absent: systolic murmur, diastolic murmur, rubs, gallop, clicks GI/Abdominal exam: Present: soft, normal bowel sounds. Absent: distended, tenderness, guarding, rebound, rigid Extremities exam: Present: normal inspection, full ROM, normal capillary refill. Absent: tenderness, pedal edema, joint swelling, calf tenderness Back exam: Present: normal inspection Neurological exam: Present: alert, oriented X3, CN II-XII intact Psychiatric exam: Present: normal affect, normal mood Skin exam: Present: warm, dry, intact, normal color. Absent: rash Course Vital Signs 04/28/18 04/29/18 22:44 00:15 Temperature 97.6 F Pulse Rate 74 64 Respiratory 16 18 Rate Blood Pressure 130/89 115/78 O2 Sat by Pulse 100 100 Oximetry Medical Decision Making - Medical Decision Making Plan I female the ER for evaluation no gallbladder disease, biliary sludge of biliary colic. Patient does have mildly dilated common bile duct. Labwork remains stable with elevated. Patient will be admitted for surgical consultation - Lab Data Result diagrams: 04/30/18 06:22 04/30/18 06:22 Lab Results 04/28/18 04/28/18 Range/Units 23:00 23:00 WBC 5.6 (3.8-10.6) k/uL RBC 4.50 (3.80-5.40) m/uL Hgb 13.8 (11.4-16.0) gm/dL Hct 41.1 (34.0-46.0) % MCV 91.5 (80.0-100.0) fL MCH 30.7 (25.0-35.0) pg MCHC 33.6 (31.0-37.0) g/dL RDW 12.7 (11.5-15.5) % Plt Count 402 (150-450) k/uL Neutrophils % 61 % Lymphocytes % 19 % Monocytes % 12 % Eosinophils % 5 % Basophils % 0 % Neutrophils # 3.4 (1.3-7.7) k/uL Lymphocytes # 1.1 (1.0-4.8) k/uL Monocytes # 0.7 (0-1.0) k/uL Eosinophils # 0.3 (0-0.7) k/uL Basophils # 0.0 (0-0.2) k/uL Sodium 138 (137-145) mmol/L Potassium 3.8 (3.5-5.1) mmol/L Chloride 105 (98-107) mmol/L Carbon Dioxide 23 (22-30) mmol/L Anion Gap 10 mmol/L BUN 14 (7-17) mg/dL Creatinine 0.54 (0.52-1.04) mg/dL Est GFR (CKD-EPI)AfAm >90 (>60 ml/min/1.73 sqM) Est GFR (CKD-EPI)NonAf >90 (>60 ml/min/1.73 sqM) Glucose 102 H (74-99) mg/dL Calcium 9.8 (8.4-10.2) mg/dL Total Bilirubin 0.5 (0.2-1.3) mg/dL AST 58 H (14-36) U/L ALT 74 H (9-52) U/L Alkaline Phosphatase 230 H (38-126) U/L Total Protein 7.6 (6.3-8.2) g/dL Albumin 4.2 (3.5-5.0) g/dL Amylase 118 H (30-110) U/L Lipase 92 (23-300) U/L Disposition Clinical Impression: Gallbladder sludge, Biliary colic, Abdominal pain Disposition: ADMITTED IP TO THIS HOSP Condition: Good Is patient prescribed a controlled substance at d/c from ED?: No
[2018-04-28 23:51] LABS: ALT 74 U/L (9-52); AST 58 U/L (14-36); Albumin 4.2 g/dL (3.5-5.0); Alkaline Phosphatase 230 U/L (38-126); Amylase 118 U/L (30-110); Anion Gap 10 mmol/L; Blood Urea Nitrogen 14 mg/dL (7-17); Calcium 9.8 mg/dL (8.4-10.2); Carbon Dioxide 23 mmol/L (22-30); Chloride 105 mmol/L (98-107); Glucose 102 mg/dL (74-99); Lipase 92 U/L (23-300); Potassium 3.8 mmol/L (3.5-5.1); Sodium 138 mmol/L (137-145); Total Bilirubin 0.5 mg/dL (0.2-1.3); Total Protein 7.6 g/dL (6.3-8.2)
--- NOTE | 2018-04-29 00:06 | US ---
EXAM: US Abdomen Limited, Right Upper Quadrant CLINICAL HISTORY: Pain TECHNIQUE: Real-time ultrasound of the right upper quadrant with image documentation. COMPARISON: 04/24/2018 FINDINGS: Liver: Mildly coarsened hepatic echotexture. No focal hepatic lesion. Gallbladder: No gallstones, sludge, gallbladder wall thickening, or pericholecystic fluid. Sonographic Elaine sign is positive. Common bile duct: Mildly dilated common bile duct measuring up to 7 mm. No stones. Pancreas: Unremarkable as visualized. Right kidney: Unremarkable. No stones. No solid mass. No hydronephrosis. IMPRESSION: Mildly dilated common bile duct. Sonographic Elaine sign is positive. No gallstones.
[2018-04-29] MEDS ORDERED: SODIUM CHLORIDE 0.9% 1,000 ML IV ONE (00:11)
[2018-04-29] MEDS: MORPHINE SULFATE 4 MG/ML SYRINGE IVP PRN ×2 (01:07→20:00)
[2018-04-29 01:19] VITALS: BMI 24.3
[2018-04-29 06:34] LABS: Appearance,Urine Clear (Clear); Bilirubin,Urine Negative (Negative); Blood,Urine Negative (Negative); Color,Urine Yellow; Glucose,Urine (UA) Negative (Negative); Ketones,Urine 3+ (Negative); Leukocyte Esterase,Urine Negative (Negative); Nitrite,Urine Negative (Negative); Protein,Urine Negative (Negative); Specific Gravity,Urine 1.015 (1.001-1.035); Urobilinogen,Urine <2.0 mg/dL (<2.0)
[2018-04-29 08:20] LABS: Basophils % (A) 0 %; Eosinophils % (A) 1 %; HCT 37.7 % (34.0-46.0); HGB 12.5 gm/dL (11.4-16.0); Lymphocytes # (A) 0.7 k/uL (1.0-4.8); Lymphocytes % (A) 15 %; MCH 30.8 pg (25.0-35.0); MCHC 33.3 g/dL (31.0-37.0); MCV 92.6 fL (80.0-100.0); Mean Platelet Volume 7.9; Monocytes # (A) 0.3 k/uL (0-1.0); Monocytes % (A) 6 %; Neutrophils # (A) 3.8 k/uL (1.3-7.7); Neutrophils % (A) 77 %; Platelet Count 372 k/uL (150-450); RBC 4.07 m/uL (3.80-5.40); RDW 12.8 % (11.5-15.5)
[2018-04-29 08:26] LABS: ALT 65 U/L (9-52); AST 37 U/L (14-36); Albumin 3.4 g/dL (3.5-5.0); Alkaline Phosphatase 171 U/L (38-126); Anion Gap 6 mmol/L; Blood Urea Nitrogen 11 mg/dL (7-17); Carbon Dioxide 24 mmol/L (22-30); Chloride 105 mmol/L (98-107); Glucose 96 mg/dL (74-99); Lipase 40 U/L (23-300); Potassium 4.5 mmol/L (3.5-5.1); Sodium 135 mmol/L (137-145); Total Bilirubin 0.4 mg/dL (0.2-1.3); Total Protein 6.5 g/dL (6.3-8.2)
--- NOTE | 2018-04-29 10:45 | NM ---
EXAMINATION TYPE: NM hepatobiliary w CCK DATE OF EXAM: 04/29/2018 COMPARISON: Gallbladder ultrasound dated 04/28/2018 HISTORY: Right upper quadrant pain TECHNIQUE: After the intravenous administration of 4.95 mCi Tc 99m Mebrofenin hepatobiliary scintigra phy is performed. Immediate images post injection. FINDINGS: There is satisfactory initial accumulation of tracer by the liver. The gallbladder is visualized wit hin 1 minute. The small bowel activity is noted within 13 minutes. At 30 minutes CCK was administer ed, patient was injected with 1.5 mcg of Kinevac, and gallbladder ejection fraction is calculated at 55 %, in the normal range. Therefore there is no scintigraphic evidence of cystic or common bile cari t obstruction to suggest acute cholecystitis or gallbladder dyskinesia. IMPRESSION: No scintigraphic evidence of acute cholecystitis, chronic cholecystitis or biliary dyskin esia.
--- NOTE | 2018-04-29 13:47 | P.GSHP ---
<Anais Valencia A - Last Filed: 04/29/18 13:46> History of Present Illness H&P Date: 04/29/18 Chief Complaint: Abdominal pain CHIEF COMPLAINT: Abdominal pain HISTORY OF PRESENT ILLNESS: 27-year-old -[place] female who presented to the emergency room a chief complaint of abdominal pain. Patient states she has been having right upper quadrant pain intermittently for the last 2-3 weeks. This is her third visit to the emergency room this week due to pain. She states she was eating a bag of chips yesterday when shortly after she began having severe right upper quadrant pain and she then presented to the emergency room for further evaluation. She states she was experiencing nausea and vomiting yesterday, which has subsided today. PAST MEDICAL HISTORY: See list. PAST SURGICAL HISTORY: See list. MEDICATIONS: See list. ALLERGIES: See list. SOCIAL HISTORY: No illicit drug use. REVIEW OF SYSTEMS: CONSTITUTIONAL: Denies fever or chills. HEENT: Denies blurred vision, vision changes, or eye pain. Denies hemoptysis ENDOCRINE: Denies heat or cold intolerance. CARDIOVASCULAR: Denies chest pain or pressure. RESPIRATORY: No shortness of breath. GASTROINTESTINAL: Reports right upper quadrant abdominal pain, nausea, and vomiting prior to hospitalization which has since subsided. NEURO: Denies history of seizures. PSYCH: No depression or suicidal ideation HEMATOLOGIC: Denies bleeding disorders. LYMPHATIC: The patient denies any lumps and bumps around the neck. GENITOURINARY: Denies any blood in urine or increased urinary frequency. MUSCULOSKELETAL: Denies myalgias. Denies joint swelling. Denies decreased range of motion beyond patients baseline. SKIN: Denies pruitis. Denies rash. PHYSICAL EXAM: VITAL SIGNS: Currently stable. GENERAL: Well-developed in no acute distress. HEENT: No sclera icterus. Extraocular movements grossly intact. Moist buccal mucosa. Head is atraumatic, normocephalic. Hears conversational speech. No nasal drainage. NECK: Supple without lymphadenopathy. CHEST: Non-labored respirations and equal bilateral excursions. CARDIOVASCULAR: Regular rate with regular rhythm. Palpable 2+ radial pulses. ABDOMEN: Soft. Nondistended. Tenderness upon palpation of right upper quadrant. MUSCULOSKELETAL: No clubbing, cyanosis or edema. NEUROLOGIC: No focal or lateralizing signs. Cranial nerves II through XII grossly intact. PSYCH: Appropriate affect. Alert and oriented to person, place and time. SKIN: Well perfused. Good skin turgor. IMAGIN. Gallbladder ultrasound 04/28/2018: Negative for gallstones, sludge, gallbladder wall thickening, or pericholecystic fluid. Sonographic Elaine sign is positive. Mildly dilated common bile duct measuring 7 mm. US results discussed with radiologist, Dr. Burrows, who states on one image there is a possibility of trace sludge versus artifact. He does report there is definite gallbladder sludge on ultrasound that was taken on 04/24/2018 2. HIDA scan: No evidence to suggest acute cholecystitis, chronic cholecystitis or biliary dyskinesia. EF 55% ASSESSMENT: 1. Biliary colic with gallbladder sludge visualized on ultrasound 04/24/2018 2. Elevated liver enzymes PLAN: 1. NPO 2. Patient to undergo laparoscopic cholecystectomy this afternoon with Dr. Diaz Nurse practitioner note has been reviewed by physician. Signing provider agrees with the documented findings, assessment, and plan of care. Past Medical History Past Medical History: No Reported History History of Any Multi-Drug Resistant Organisms: None Reported Past Surgical History: No Surgical Hx Reported Past Anesthesia/Blood Transfusion Reactions: No Reported Reaction Past Psychological History: Anxiety, Bipolar, Depression Smoking Status: Never smoker Past Alcohol Use History: Rare Past Drug Use History: Marijuana - Past Family History Father Family Medical History: No Reported History Mother Family Medical History: Unable to Obtain Brother(s) Family Medical History: No Reported History Medications and Allergies Home Medications Medication Instructions Recorded Confirmed Type Multivitamin,Therapeutic [Thera] 1 tab PO DAILY 04/26/18 04/28/18 History Allergies Allergy/AdvReac Type Severity Reaction Status Date / Time No Known Allergies Allergy Verified 04/28/18 22:52 Surgical - Exam Vital Signs Temp Pulse Resp BP Pulse Ox 97.6 F 74 16 130/89 100 04/28/18 22:44 04/28/18 22:44 04/28/18 22:44 04/28/18 22:44 04/28/18 22:44 Results - Labs 04/29/18 06:37 04/29/18 06:37 Abnormal Lab Results - Last 24 Hours (Table) 04/28/18 04/29/18 04/29/18 Range/Units 23:00 04:20 06:37 Lymphocytes # 0.7 L (1.0-4.8) k/uL Sodium (137-145) mmol/L Glucose 102 H (74-99) mg/dL AST 58 H (14-36) U/L ALT 74 H (9-52) U/L Alkaline Phosphatase 230 H (38-126) U/L Albumin (3.5-5.0) g/dL Amylase 118 H (30-110) U/L Urine Ketones 3+ H (Negative) 04/29/18 Range/Units 06:37 Lymphocytes # (1.0-4.8) k/uL Sodium 135 L (137-145) mmol/L Glucose (74-99) mg/dL AST 37 H (14-36) U/L ALT 65 H (9-52) U/L Alkaline Phosphatase 171 H (38-126) U/L Albumin 3.4 L (3.5-5.0) g/dL Amylase (30-110) U/L Urine Ketones (Negative) Diabetes panel 04/28/18 04/29/18 Range/Units 23:00 06:37 Sodium 138 135 L (137-145) mmol/L Potassium 3.8 4.5 (3.5-5.1) mmol/L Chloride 105 105 (98-107) mmol/L Carbon Dioxide 23 24 (22-30) mmol/L BUN 14 11 (7-17) mg/dL Creatinine 0.54 0.55 (0.52-1.04) mg/dL Glucose 102 H 96 (74-99) mg/dL Calcium 9.8 9.0 (8.4-10.2) mg/dL AST 58 H 37 H (14-36) U/L ALT 74 H 65 H (9-52) U/L Alkaline Phosphatase 230 H 171 H (38-126) U/L Total Protein 7.6 6.5 (6.3-8.2) g/dL Albumin 4.2 3.4 L (3.5-5.0) g/dL Calcium panel 04/28/18 04/29/18 Range/Units 23:00 06:37 Calcium 9.8 9.0 (8.4-10.2) mg/dL Albumin 4.2 3.4 L (3.5-5.0) g/dL Pituitary panel 04/28/18 04/29/18 Range/Units 23:00 06:37 Sodium 138 135 L (137-145) mmol/L Potassium 3.8 4.5 (3.5-5.1) mmol/L Chloride 105 105 (98-107) mmol/L Carbon Dioxide 23 24 (22-30) mmol/L BUN 14 11 (7-17) mg/dL Creatinine 0.54 0.55 (0.52-1.04) mg/dL Glucose 102 H 96 (74-99) mg/dL Calcium 9.8 9.0 (8.4-10.2) mg/dL Adrenal panel 04/28/18 04/29/18 Range/Units 23:00 06:37 Sodium 138 135 L (137-145) mmol/L Potassium 3.8 4.5 (3.5-5.1) mmol/L Chloride 105 105 (98-107) mmol/L Carbon Dioxide 23 24 (22-30) mmol/L BUN 14 11 (7-17) mg/dL Creatinine 0.54 0.55 (0.52-1.04) mg/dL Glucose 102 H 96 (74-99) mg/dL Calcium 9.8 9.0 (8.4-10.2) mg/dL Total Bilirubin 0.5 0.4 (0.2-1.3) mg/dL AST 58 H 37 H (14-36) U/L ALT 74 H 65 H (9-52) U/L Alkaline Phosphatase 230 H 171 H (38-126) U/L Total Protein 7.6 6.5 (6.3-8.2) g/dL Albumin 4.2 3.4 L (3.5-5.0) g/dL <Aj Diaz - Last Filed: 04/29/18 17:37> History of Present Illness As above. Patient presents with complaints of right upper quadrant pain with radiation to the back. Last night's ultrasound did not show sludge or gallstones and for that reason a HIDA scan was ordered. The results showed no gallbladder dysfunction however the previous ultrasounds were reviewed and did in fact show gallbladder sludge. The patient does have sonographic Elaine sign. Liver enzymes slightly elevated. Patient does feel better today. Recently she has noticed some darker urine. At this time agree with clinical diagnosis of cholecystitis. Possibility of choledocholithiasis reviewed with the patient. Will proceed with laparoscopic cholecystectomy, possible open cholecystectomy at this time. Risks of bleeding, infection, bile leak, bile duct injury, retained common bile duct stone, trocar injury, conversion to an open procedure, hernia, anesthesia related complications were reviewed. The patient understands and wishes to proceed. Surgical - Exam Vital Signs Temp Pulse Resp BP Pulse Ox 97.6 F 74 16 130/89 100 04/28/18 22:44 04/28/18 22:44 04/28/18 22:44 04/28/18 22:44 04/28/18 22:44 Results - Labs 04/29/18 06:37 04/29/18 06:37 Abnormal Lab Results - Last 24 Hours (Table) 04/28/18 04/29/18 04/29/18 Range/Units 23:00 04:20 06:37 Lymphocytes # 0.7 L (1.0-4.8) k/uL Sodium (137-145) mmol/L Glucose 102 H (74-99) mg/dL AST 58 H (14-36) U/L ALT 74 H (9-52) U/L Alkaline Phosphatase 230 H (38-126) U/L Albumin (3.5-5.0) g/dL Amylase 118 H (30-110) U/L Urine Ketones 3+ H (Negative) 04/29/18 Range/Units 06:37 Lymphocytes # (1.0-4.8) k/uL Sodium 135 L (137-145) mmol/L Glucose (74-99) mg/dL AST 37 H (14-36) U/L ALT 65 H (9-52) U/L Alkaline Phosphatase 171 H (38-126) U/L Albumin 3.4 L (3.5-5.0) g/dL Amylase (30-110) U/L Urine Ketones (Negative) Diabetes panel 04/28/18 04/29/18 Range/Units 23:00 06:37 Sodium 138 135 L (137-145) mmol/L Potassium 3.8 4.5 (3.5-5.1) mmol/L Chloride 105 105 (98-107) mmol/L Carbon Dioxide 23 24 (22-30) mmol/L BUN 14 11 (7-17) mg/dL Creatinine 0.54 0.55 (0.52-1.04) mg/dL Glucose 102 H 96 (74-99) mg/dL Calcium 9.8 9.0 (8.4-10.2) mg/dL AST 58 H 37 H (14-36) U/L ALT 74 H 65 H (9-52) U/L Alkaline Phosphatase 230 H 171 H (38-126) U/L Total Protein 7.6 6.5 (6.3-8.2) g/dL Albumin 4.2 3.4 L (3.5-5.0) g/dL Calcium panel 04/28/18 04/29/18 Range/Units 23:00 06:37 Calcium 9.8 9.0 (8.4-10.2) mg/dL Albumin 4.2 3.4 L (3.5-5.0) g/dL Pituitary panel 04/28/18 04/29/18 Range/Units 23:00 06:37 Sodium 138 135 L (137-145) mmol/L Potassium 3.8 4.5 (3.5-5.1) mmol/L Chloride 105 105 (98-107) mmol/L Carbon Dioxide 23 24 (22-30) mmol/L BUN 14 11 (7-17) mg/dL Creatinine 0.54 0.55 (0.52-1.04) mg/dL Glucose 102 H 96 (74-99) mg/dL Calcium 9.8 9.0 (8.4-10.2) mg/dL Adrenal panel 04/28/18 04/29/18 Range/Units 23:00 06:37 Sodium 138 135 L (137-145) mmol/L Potassium 3.8 4.5 (3.5-5.1) mmol/L Chloride 105 105 (98-107) mmol/L Carbon Dioxide 23 24 (22-30) mmol/L BUN 14 11 (7-17) mg/dL Creatinine 0.54 0.55 (0.52-1.04) mg/dL Glucose 102 H 96 (74-99) mg/dL Calcium 9.8 9.0 (8.4-10.2) mg/dL Total Bilirubin 0.5 0.4 (0.2-1.3) mg/dL AST 58 H 37 H (14-36) U/L ALT 74 H 65 H (9-52) U/L Alkaline Phosphatase 230 H 171 H (38-126) U/L Total Protein 7.6 6.5 (6.3-8.2) g/dL Albumin 4.2 3.4 L (3.5-5.0) g/dL
[2018-04-29] MEDS: SODIUM CHLORIDE 0.9% 1,000 ML IV SCH ×2 (15:28→23:20)
[2018-04-29] MEDS ORDERED: ONDANSETRON 4 MG/2 ML VIAL IVP ONE (17:00)
[2018-04-29] MEDS ORDERED: IV FLUID CONTINUATION 1,000 ML IV ONE (17:06)
[2018-04-29] MEDS ORDERED: DEXAMETHASONE SOD PHOS (MDV) 100 MG/10 ML VIAL IVP ONE (17:08)
[2018-04-29] MEDS ORDERED: HEPARIN SODIUM,PORCINE 5,000 UNIT/ML 1 ML VIAL SQ ONE (17:30)
[2018-04-29] MEDS ORDERED: ceFAZolin 2 GM in SODIUM CHLORIDE 0.9% 100 ML IVPB ONE (17:31)
[2018-04-29] MEDS ORDERED: PROPOFOL 10 MG/ML 20 ML VIAL IV ONE (17:35)
[2018-04-29] MEDS ORDERED: MIDAZOLAM 2 MG/2 ML VIAL ONE (17:35)
[2018-04-29] MEDS ORDERED: LIDOCAINE 1% INJ 10MG/ML (20 ML MDV) ONE (17:35)
[2018-04-29] MEDS ORDERED: KETOROLAC 30 MG/ML 1 ML VIAL ONE (17:35)
[2018-04-29] MEDS ORDERED: NEOSTIGMINE 1 MG/ML 10 ML VIAL ONE (17:35)
[2018-04-29] MEDS ORDERED: SUCCINYLCHOLINE CHLORIDE 100 MG/5 ML SYR IV ONE (17:35)
[2018-04-29] MEDS ORDERED: GLYCOPYRROLATE 0.2 MG/ML 2 ML VIAL ONE (17:35)
[2018-04-29] MEDS ORDERED: fentaNYL (PF) 50 MCG/ML 2 ML AMP ONE (17:35)
[2018-04-29] MEDS ORDERED: ROCURONIUM BROMIDE 10 MG/ML 10 ML VIAL IV ONE (17:35)
[2018-04-29] MEDS ORDERED: ceFAZolin IN SWFI 2 GM/20 ML SYRINGE IVP ONE (17:45)
[2018-04-29] MEDS ORDERED: BUPIVACAIN-EPI 0.5%-1:200,000 30 ML VIAL SQ ONE ×2 (18:02)
[2018-04-29] MEDS ORDERED: HYDROcodone/APAP 5-325MG 1 EACH TAB PO PRN (18:50)
--- NOTE | 2018-04-29 18:52 | P.OP ---
Date of Procedure: 04/29/18 Procedure(s) Performed: PREOPERATIVE DIAGNOSIS: Acute cholecystitis POSTOPERATIVE DIAGNOSIS: Same PROCEDURE: Laparoscopic cholecystectomy SURGEON: Joe EBL: Minimal see anesthesia record ANESTHESIA: Gen. COMPLICATIONS: None OPERATIVE PROCEDURE: The patient was brought and placed on the operating room table in the supine position. The patient was placed under general anesthesia at that time. The abdomen was prepped and draped in the usual sterile fashion. A small vertical infraumbilical incision was made. The fascia was grasped with the Maria E forceps. The fascia was retracted anteriorly. The Veress needle was advanced into the peritoneal cavity. The saline drop test was normal. Insufflation took place up to 15 mmHg. A 5 mm optical trocar was advanced and the peritoneal cavity. 2 additional 5 mm trochars were placed in the right upper quadrant under direct visualization. A 12 mm trocar was advanced into the epigastric incision site. The gallbladder was retracted superiorly and laterally. The peritoneum overlying the infundibulum was bluntly dissected. The patient's cystic duct was visualized. The junction between the cystic duct common and hepatic duct was identified. The cystic duct was then divided after placement of 3 12 mm clips on the patient's side and one on the specimen side. The cystic artery was identified and clipped as well. A small vessel was seen along the gallbladder fossa and clipped as well. The gallbladder was then removed from the liver bed using electrocautery. The gallbladder was then removed from the epigastric trocar site with an Endo Catch bag. The gallbladder fossa was irrigated with saline. There was no evidence of any bleeding or b iliary drainage seen. The fascia at the 12 millimeter site was closed using a Vincenzo-Delfina 0 Vicryl stitch. The trochars were then removed. The skin at all 4 sites was closed using a 4-0 Monocryl stitch. Skin glue was utilized on the incision sites. At the end of this procedure the sponge and needle counts were correct. DISPOSITION: Stable to the recovery room
[2018-04-29] MEDS: ONDANSETRON 4 MG/2 ML VIAL IVP PRN ×2 (19:16→23:26)
[2018-04-29] MEDS ORDERED: diphenhydrAMINE 50 MG/ML 1 ML VIAL IVP ONE (19:27)
[2018-04-29] MEDS: FAMOTIDINE 20 MG/2 ML VIAL IV SCH (20:00)
[2018-04-29] MEDS: AMPICILLIN-SULBACTAM 3 GM in SODIUM CHLORIDE 0.9% 100 ML IVPB SCH (23:20)
[2018-04-29] MEDS: HEPARIN SODIUM,PORCINE 5,000 UNIT/ML 1 ML VIAL SQ SCH (23:20)
[2018-04-29 23:52] VITALS: PULSE 60
[2018-04-30 07:10] LABS: Basophils % (A) 0 %; Eosinophils # (A) 0.1 k/uL (0-0.7); Eosinophils % (A) 1 %; HCT 37.2 % (34.0-46.0); HGB 12.5 gm/dL (11.4-16.0); Lymphocytes % (A) 15 %; MCH 31.2 pg (25.0-35.0); MCHC 33.7 g/dL (31.0-37.0); MCV 92.5 fL (80.0-100.0); Mean Platelet Volume 7.3; Monocytes # (A) 0.5 k/uL (0-1.0); Monocytes % (A) 7 %; Neutrophils # (A) 5.3 k/uL (1.3-7.7); Neutrophils % (A) 76 %; Platelet Count 380 k/uL (150-450); RBC 4.02 m/uL (3.80-5.40); RDW 12.8 % (11.5-15.5); WBC 6.9 k/uL (3.8-10.6)
[2018-04-30] MEDS: AMPICILLIN-SULBACTAM 3 GM in SODIUM CHLORIDE 0.9% 100 ML IVPB SCH (07:14)
[2018-04-30] MEDS: HEPARIN SODIUM,PORCINE 5,000 UNIT/ML 1 ML VIAL SQ SCH (07:15)
[2018-04-30] MEDS: FAMOTIDINE 20 MG/2 ML VIAL IV SCH (07:15)
[2018-04-30 07:20] VITALS: BP 106/65; RESP 16; TEMP 97.9
[2018-04-30 07:30] LABS: ALT 59 U/L (9-52); AST 39 U/L (14-36); Albumin 3.4 g/dL (3.5-5.0); Alkaline Phosphatase 165 U/L (38-126); Anion Gap 8 mmol/L; Blood Urea Nitrogen 9 mg/dL (7-17); Calcium 9.2 mg/dL (8.4-10.2); Carbon Dioxide 21 mmol/L (22-30); Chloride 105 mmol/L (98-107); Glucose 62 mg/dL (74-99); Potassium 4.3 mmol/L (3.5-5.1); Sodium 134 mmol/L (137-145); Total Bilirubin 0.6 mg/dL (0.2-1.3); Total Protein 6.4 g/dL (6.3-8.2)
--- NOTE | 2018-04-30 10:37 | P.DS ---
<Anais Valencia - Last Filed: 04/30/18 10:37> Providers Expected date of discharge: 04/30/18 Hospital Course: 27-year-old -Citizen Of [place] female who presented to the emergency room a chief complaint of abdominal pain. Patient underwent HIDA scan which revealed ejection fraction of 55%. Ultrasound showed possible trace sludge. However patient was seen in the emergency room a few days prior and ultrasound at that time revealed sludge. Patient underwent laparoscopic cholecystectomy on 04/29/2018. The patient is doing well postoperatively without any immediate complications. Her pain is controlled with oral medications. Denies nausea or vomiting. Tolerating clear liquid diet. She has been ambulating and apparently in her room. Vital signs are stable. LFTs are trending downward. White count is within normal limits. The patient is stable for discharge home today. She is to follow up with Dr. Diaz within 1 week. Please see EMR for further hospital course details. Discharge Diagnosis: 1. Cholecystitis, status post laparoscopic cholecystectomy 2. Elevated liver enzymes Nurse practitioner note has been reviewed by physician. Signing provider agrees with the documented findings, assessment, and plan of care. Patient Condition at Discharge: Good Plan - Discharge Summary Discharge Rx Participant: Yes New Discharge Prescriptions: New HYDROcodone/APAP 7.5-325MG [Otis 7.5-325] 1 tab PO Q4H PRN 3 Days #18 tab PRN Reason: Pain Docusate [Colace] 100 mg PO BID #30 capsule No Action Multivitamin,Therapeutic [Thera] 1 tab PO DAILY Discharge Medication List Multivitamin,Therapeutic [Thera] 1 tab PO DAILY 04/26/18 [History] Docusate [Colace] 100 mg PO BID #30 capsule 04/30/18 [Rx] HYDROcodone/APAP 7.5-325MG [Otis 7.5-325] 1 tab PO Q4H PRN 3 Days #18 tab 04/30/18 [Rx] Follow up Appointment(s)/Referral(s): Aj Diaz MD [Medical Doctor] - 05/12/18 3:20 pm (Please bring [employer] Bharath to appointment) None,Stated [Primary Care Provider] - 1-2 days Patient Instructions/Handouts: *Surgery [facility] - Laparoscopic Cholecystectomy Discharge Instructions Activity/Diet/Wound Care/Special Instructions: No driving while taking Otis No lifting over 10 pounds You may shower. No soaking or tub baths Very light activity until you are reevaluated at your follow up appointment with your surgeon Discharge Disposition: HOME SELF-CARE <Aj Diaz - Last Filed: 04/30/18 11:32> Providers Date of admission: 04/29/18 00:12 Attending physician: Aj Diaz Primary care physician: Stated None Hospital Course: As above. Patient doing well. Tolerating diet. Liver enzymes improved. May discharge. Follow-up one week.
[2018-04-30] MEDS: SODIUM CHLORIDE 0.9% 1,000 ML IV SCH (11:24)
[2018-04-30] MEDS ORDERED: FAMOTIDINE 20 MG TAB PO SCH (21:00)
== END 2018-04-30 11:24 | disposition home or self-care (01) ==
LOC: EC 22:40 → 4SSUR 04-29 00:12
PROVIDERS: ADMIT Surgery; ATTEND Surgery
DX: K81.0 Acute cholecystitis (principal); K81.1 Chronic cholecystitis; F41.9 Anxiety disorder, unspecified; F31.9 Bipolar disorder, unspecified
CPT/HCPCS: 47562; 96361 ×2; 96374; 96375; 99285; 36415; 81025 ×2; 88304; 80053 ×3; 82150; 83690 ×2; 85025 ×3; 81003; 76705; 78227; G0378 ×2; A9537; J2250; J2270 ×2; J1200; J1644 ×2; J2710; J2405 ×2; J2805; J2001; J3010; J1885 ×2; J0295 ×2; J1100; J0330; J2704; J0690

== ENCOUNTER 2019-11-21 22:46 | Emergency (ER) | payer OTHER ==
[2019-11-21 22:50] VITALS: RESP 18
[2019-11-22] MEDS ORDERED: ONDANSETRON 4 MG/2 ML VIAL IVP STA (00:57)
[2019-11-22] MEDS ORDERED: SODIUM CHLORIDE 0.9% 1,000 ML IV STA (00:57)
--- NOTE | 2019-11-22 00:57 | ED ---
General Adult HPI - General Chief complaint: Nausea/Vomiting/Diarrhea Stated complaint: Fever, vomiting Time Seen by Provider: 11/22/19 00:32 Source: patient Mode of arrival: ambulatory Limitations: no limitations - History of Present Illness Initial comments: 29-year-old female presents to the emergency department this evening with complaints of fever and vomiting, onset 24 hours prior to arrival. States symptoms are accompanied by body aches, chills, and malaise; reports they began after a 36 hour fast. Patient has not taken any oral medications for fever control or pain associated with body aches. States she is unable to tolerate even water. Patient denies any recent rash, cough, shortness of breath, chest pain, abdominal pain, diarrhea, constipation, back pain, numbness, tingling, dizziness, weakness, hematuria, dysuria, urinary urgency, urinary frequency, headache, visual changes, or any other complaints. Patient did attend a republican on Thursday and is concerned she may have COVID-19. - Related Data Home Medications Medication Instructions Recorded Confirmed Multivitamin,Therapeutic [Thera] 1 tab PO DAILY 04/26/18 04/28/18 Previous Rx's Medication Instructions Recorded Docusate [Colace] 100 mg PO BID #30 capsule 04/30/18 HYDROcodone/APAP 7.5-325MG [[place] 1 tab PO Q4H PRN 3 Days #18 tab 04/30/18 7.5-325] Ondansetron [Zofran ODT] 4 mg PO Q8HR PRN #10 tab 11/22/19 RX: Ibuprofen [Motrin] 600 mg PO Q8HR PRN #30 tab 11/22/19 Allergies Allergy/AdvReac Type Severity Reaction Status Date / Time No Known Allergies Allergy Verified 11/21/19 22:50 Review of Systems ROS Statement: Those systems with pertinent positive or pertinent negative responses have been documented in the HPI. ROS Other: All systems not noted in ROS Statement are negative. Past Medical History Past Medical History: No Reported History History of Any Multi-Drug Resistant Organisms: None Reported Past Surgical History: No Surgical Hx Reported Past Anesthesia/Blood Transfusion Reactions: No Reported Reaction Past Psychological History: Anxiety, Bipolar, Depression Smoking Status: Current every day smoker Past Alcohol Use History: Rare Past Drug Use History: Marijuana - Past Family History Father Family Medical History: No Reported History Mother Family Medical History: Unable to Obtain Brother(s) Family Medical History: No Reported History General Exam Limitations: no limitations General appearance: alert, in no apparent distress ENT exam: Present: mucous membranes moist Respiratory exam: Present: normal lung sounds bilaterally. Absent: respiratory distress, wheezes, rales, rhonchi, stridor Cardiovascular Exam: Present: regular rate, normal rhythm, normal heart sounds. Absent: systolic murmur, diastolic murmur, rubs, gallop, clicks GI/Abdominal exam: Present: soft, tenderness (Louisa-umbilical tenderness upon palpation), normal bowel sounds. Absent: distended, guarding, rebound, rigid Neurological exam: Present: alert, oriented X3, CN II-XII intact Psychiatric exam: Present: normal affect, normal mood Skin exam: Present: warm, dry, intact, normal color. Absent: rash Course Vital Signs 11/21/19 22:47 Temperature 98.5 F Pulse Rate 95 Respiratory 18 Rate Blood Pressure 116/76 O2 Sat by Pulse 99 Oximetry Medical Decision Making - Medical Decision Making 29-year-old female patient presents to the emergency department today for evaluation of vomiting, body aches, and chills. Patient was concerned she may have had a fever. Physical examination did reveal some mild abdominal tenderness. Lungs are clear to auscultation with good air movement. Patient was given IV fluids, nausea medication. Labs were drawn and are relatively unremarkable. Upon reevaluation patient is resting comfortably in bed. I did discuss findings and results with her. We did discuss quarantine until she has her COVID-19 results. I did send Zofran and ibuprofen to her pharmacy. She is instructed to follow-up with her primary care physician for recheck in 1-2 days. Return parameters discussed in detail. She verbalizes understanding and agrees with this plan. - Lab Data Result diagrams: 11/22/19 01:23 11/22/19 01:23 Lab Results 11/22/19 11/22/19 Range/Units 01:23 01:23 WBC 6.3 (3.8-10.6) k/uL RBC 4.64 (3.80-5.40) m/uL Hgb 14.3 (11.4-16.0) gm/dL Hct 42.5 (34.0-46.0) % MCV 91.7 (80.0-100.0) fL MCH 30.9 (25.0-35.0) pg MCHC 33.6 (31.0-37.0) g/dL RDW 12.4 (11.5-15.5) % Plt Count 336 (150-450) k/uL Neutrophils % 85 % Lymphocytes % 11 % Monocytes % 2 % Eosinophils % 2 % Basophils % 0 % Neutrophils # 5.3 (1.3-7.7) k/uL Lymphocytes # 0.7 L (1.0-4.8) k/uL Monocytes # 0.1 (0-1.0) k/uL Eosinophils # 0.1 (0-0.7) k/uL Basophils # 0.0 (0-0.2) k/uL Sodium 135 L (137-145) mmol/L Potassium 4.5 (3.5-5.1) mmol/L Chloride 104 (98-107) mmol/L Carbon Dioxide 19 L (22-30) mmol/L Anion Gap 12 mmol/L BUN 13 (7-17) mg/dL Creatinine 0.63 (0.52-1.04) mg/dL Est GFR (CKD-EPI)AfAm >90 (>60 ml/min/1.73 sqM) Est GFR (CKD-EPI)NonAf >90 (>60 ml/min/1.73 sqM) Glucose 100 H (74-99) mg/dL Calcium 10.4 H (8.4-10.2) mg/dL Total Bilirubin 0.7 (0.2-1.3) mg/dL AST 45 H (14-36) U/L ALT 54 H (4-34) U/L Alkaline Phosphatase 120 (38-126) U/L Total Protein 8.6 H (6.3-8.2) g/dL Albumin 4.8 (3.5-5.0) g/dL Lipase 33 (23-300) U/L Disposition Clinical Impression: Vomiting, Body aches Disposition: HOME SELF-CARE Condition: Good Instructions (If sedation given, give patient instructions): Acute Nausea and Vomiting (ED) Additional Instructions: Start with clear liquid diet and advance as tolerated. Take medications as needed for pain and nausea control. Await your COVID-19 test results, quarantine until he you have negative a test. Return to the emergency department for any new, worsening, or concerning symptoms. Prescriptions: RX: Ibuprofen [Motrin] 600 mg PO Q8HR PRN #30 tab PRN Reason: Pain Ondansetron [Zofran ODT] 4 mg PO Q8HR PRN #10 tab PRN Reason: Nausea Is patient prescribed a controlled substance at d/c from ED?: No Referrals: None,Stated [Primary Care Provider] - 1-2 days Time of Disposition: 02:35
[2019-11-22] MEDS ORDERED: KETOROLAC 15 MG/ML 1 ML VIAL IVP STA (00:58)
[2019-11-22 01:33] LABS: Basophils % (A) 0 %; Eosinophils # (A) 0.1 k/uL (0-0.7); Eosinophils % (A) 2 %; HCT 42.5 % (34.0-46.0); HGB 14.3 gm/dL (11.4-16.0); Lymphocytes # (A) 0.7 k/uL (1.0-4.8); Lymphocytes % (A) 11 %; MCH 30.9 pg (25.0-35.0); MCHC 33.6 g/dL (31.0-37.0); MCV 91.7 fL (80.0-100.0); Mean Platelet Volume 7.7; Monocytes # (A) 0.1 k/uL (0-1.0); Monocytes % (A) 2 %; Neutrophils # (A) 5.3 k/uL (1.3-7.7); Neutrophils % (A) 85 %; Platelet Count 336 k/uL (150-450); RBC 4.64 m/uL (3.80-5.40); RDW 12.4 % (11.5-15.5); WBC 6.3 k/uL (3.8-10.6)
[2019-11-22 01:43] LABS: ALT 54 U/L (4-34); AST 45 U/L (14-36); African American GFR (CKD) >90 (>60 ml/min/1.73 sqM); Albumin 4.8 g/dL (3.5-5.0); Alkaline Phosphatase 120 U/L (38-126); Anion Gap 12 mmol/L; Blood Urea Nitrogen 13 mg/dL (7-17); Calcium 10.4 mg/dL (8.4-10.2); Carbon Dioxide 19 mmol/L (22-30); Chloride 104 mmol/L (98-107); Glucose 100 mg/dL (74-99); Non-African American GFR(CKD) >90 (>60 ml/min/1.73 sqM); Potassium 4.5 mmol/L (3.5-5.1); Sodium 135 mmol/L (137-145); Total Bilirubin 0.7 mg/dL (0.2-1.3); Total Protein 8.6 g/dL (6.3-8.2)
[2019-11-22] MEDS ORDERED: ONDANSETRON 4 MG ODT STARTER PACK 2 TAB BTL PO STA (02:34)
[2019-11-22 03:25] VITALS: BP 105/69; PULSE 77; TEMP 98.4
== END 2019-11-22 03:25 | disposition home or self-care (01) ==
LOC: EC 22:46
DX: R11.10 Vomiting, unspecified (principal); R52 Pain, unspecified; R50.9 Fever, unspecified; R53.81 Other malaise; R10.815 Periumbilic abdominal tenderness; F17.200 Nicotine dependence, unspecified, uncomplicated
CPT/HCPCS: 36415; 80053; 83690; 85025; 99284; 96374; 96375; 96361; U0003; J2405; J1885; S0119

== ENCOUNTER 2023-09-04 13:09 | Emergency (ER) | payer OTHER ==
[2023-09-04 13:13] VITALS: TEMP 97.6
--- NOTE | 2023-09-04 13:18 | ED ---
Abdominal Pain HPI - General Chief Complaint: Abdominal Pain Stated Complaint: abd pain, vomitting Time Seen by Provider: 09/04/23 13:18 Source: patient, RN notes reviewed Mode of arrival: ambulatory Limitations: no limitations - History of Present Illness Initial Comments: This is a 32-year-old female with a past medical history of cholecystectomy presents the emergency department chief complaint of epigastric discomfort, nausea and vomiting over the past 2 days. That her pain is worsened after eating located to epigastric and mid abdomen with intermittent radiation into the back. Patient states that she has been experiencing abdominal pain after eating since she had her gallbladder removed. She denies complications after her cholecystectomy. Patient denies fevers, chills, dyspnea, chest pain or pressure. Denies dysuria, hematuria, increase in frequency or urgency. Denies chance of . - Related Data Previous Rx's Medication Instructions Recorded Multivitamins, Thera [Multivitamin 1 each PO DAILY 30 Days #30 tab 04/11/22 (formulary)] Sulfamethox-Tmp 800-160Mg [Bactrim 1 each PO BID 3 Days #6 tab 04/11/22 DS 800-160 mg] Thiamine [Vitamin B-1] 100 mg PO DAILY 30 Days #30 tab 04/11/22 traZODone HCL [Desyrel] 150 mg PO HS 30 Days #30 tab 04/11/22 Ondansetron Odt [Zofran Odt] 4 mg PO Q8HR PRN #10 tab 09/04/23 Allergies Allergy/AdvReac Type Severity Reaction Status Date / Time No Known Allergies Allergy Verified 09/04/23 13:13 Review of Systems ROS Statement: Those systems with pertinent positive or pertinent negative responses have been documented in the HPI. ROS Other: All systems not noted in ROS Statement are negative. Past Medical History Past Medical History: No Reported History History of Any Multi-Drug Resistant Organisms: None Reported Past Surgical History: No Surgical Hx Reported Past Anesthesia/Blood Transfusion Reactions: No Reported Reaction Past Psychological History: Anxiety, Bipolar, Depression Smoking Status: Former smoker Past Alcohol Use History: Rare Past Drug Use History: Marijuana - Past Family History Father Family Medical History: No Reported History Mother Family Medical History: Unable to Obtain Brother(s) Family Medical History: No Reported History General Exam Limitations: no limitations General appearance: alert, in no apparent distress Head exam: Present: atraumatic, normocephalic, normal inspection Eye exam: Present: normal appearance, PERRL, EOMI. Absent: scleral icterus, conjunctival injection, periorbital swelling ENT exam: Present: normal exam, mucous membranes moist Neck exam: Present: normal inspection. Absent: tenderness, meningismus, lymphadenopathy Respiratory exam: Present: normal lung sounds bilaterally. Absent: respiratory distress, wheezes, rales, rhonchi, stridor Cardiovascular Exam: Present: regular rate, normal rhythm, normal heart sounds. Absent: systolic murmur, diastolic murmur, rubs, gallop, clicks GI/Abdominal exam: Present: soft, tenderness (epigastric), normal bowel sounds. Absent: distended, guarding, rebound, rigid Extremities exam: Present: normal inspection, full ROM, normal capillary refill. Absent: tenderness, pedal edema, joint swelling, calf tenderness Back exam: Present: normal inspection Skin exam: Present: warm, dry, intact, normal color. Absent: rash Course Vital Signs 09/04/23 09/04/23 13:10 15:54 Temperature 97.6 F Pulse Rate 89 72 Respiratory 16 18 Rate Blood Pressure 103/76 118/72 O2 Sat by Pulse 98 98 Oximetry Medical Decision Making - Medical Decision Making Was pt. sent in by a medical professional or institution (, PA, GEOTHERMAL OPERATIONS MANAGER, urgent care, hospital, or care home...) When possible be specific @ -No Did you speak to anyone other than the patient for history (EMS, parent, family, police, friend...)? What history was obtained from this source @ -No Did you review nursing and triage notes (agree or disagree)? Why? @ -I reviewed and agree with nursing and triage notes Were old charts reviewed (outside hosp., previous admission, EMS record, old EKG, old radiological studies, urgent care reports/EKG's, care home records)? Report findings @ -No old charts were reviewed Differential Diagnosis (chest pain, altered mental status, abdominal pain women, abdominal pain men, vaginal bleeding, weakness, fever, dyspnea, syncope, headache, dizziness, GI bleed, back pain, seizure, CVA, palpatations, mental health, musculoskeletal)? @ -Differential Abdominal Pain Women: Appendicitis, Cholecystitis, diverticulosis, ischemic bowel, pancreatitis, hepatitis, UTI, gastroenteritis, AAA, incarcerated hernia, bowel obstruction, constipation, inflammatory bowel, hepatitis, peptic ulcer disease, splenic infarction, perforated viscus, vulvitis, ovarian torsion, PID, kidney stone, placenta abruption, this is not meant to be an all-inclusive list EKG interpreted by me (3pts min.). @ -None X-rays interpreted by me (1pt min.). @ -None done CT interpreted by me (1pt min.). @ -None done U/S interpreted by me (1pt. min.). @ -None done What testing was considered but not performed or refused? (CT, X-rays, U/S, labs)? Why? @ -None What meds were considered but not given or refused? Why? @ -None Did you discuss the management of the patient with other professionals (professionals i.e. , PA, GEOTHERMAL OPERATIONS MANAGER, lab, RT, psych nurse, social science analyst, hand former, teacher, forest fire control officer, case briefer)? Give summary @ -No Was smoking cessation discussed for >3mins.? @ -No Was critical care preformed (if so, how long)? @ -No Were there social determinants of health that impacted care today? How? (Homelessness, low income, unemployed, alcoholism, drug addiction, transportation, low edu. Level, literacy, decrease access to med. care, senior care, rehab)? @ -No Was there de-escalation of care discussed even if they declined (Discuss DNR or withdrawal of care, Hospice)? DNR status @ -No What co-morbidities impacted this encounter? (DM, HTN, Smoking, COPD, CAD, Cancer, CVA, ARF, Chemo, Hep., AIDS, mental health diagnosis, sleep apnea, morbid obesity)? @ -None Was patient admitted / discharged? Hospital course, mention meds given and route, prescriptions, significant lab abnormalities, going to OR and other pertinent info. @ -Discharge. 32-year-old female with nausea, vomiting, and epigastric abdominal pain. Abdominal exam is remarkable for mild epigastric tenderness on palpation with no signs of rebound tenderness or rigidity. Patient vitals are stable upon arrival. She will be reviewed the laboratory studies and symptomatically treated with fluids and Zofran. She is in agreement this plan. CBC unremarkable. CMP reveals mild transaminitis with a AST 57 ALT 51 and alk phos 196. As compared to previous labs patient's transaminitis is improved. Additionally patient states that she does have a history of liver issues but is unaware of what she has been diagnosed with before. Urinalysis unremarkable or signs infection, hCG negative. Evaluation, patient states that she is feeling markedly better after fluids and Zofran. Due to exam findings and laboratory studies patient is stable for discharge home with symptomatic care. Recommend that she follow brat diet and increase oral rehydration. She will be provided a prescription for Zofran as needed over the next few days. Recommend that she follows up with her primary care provider next week for further evaluation. Case discussed with Dr. Cisneros Undiagnosed new problem with uncertain prognosis? @ -No Drug Therapy requiring intensive monitoring for toxicity (Heparin, Nitro, In sulin, Cardizem)? @ -No Were any procedures done? @ -No Diagnosis/symptom? @ -Nausea and vomiting Acute, or Chronic, or Acute on Chronic? @ -Acute Uncomplicated (without systemic symptoms) or Complicated (systemic symptoms)? @ -Uncomplicated Side effects of treatment? @ -No Exacerbation, Progression, or Severe Exacerbation? @ -No Poses a threat to life or bodily function? How? (Chest pain, [place], CA, pneumonia, PE, COPD, DKA, ARF, appy, cholecystitis, CVA, Diverticulitis, Homicidal, Suicidal, threat to staff... and all critical care pts) @ -No - Lab Data Result diagrams: 09/04/23 13:34 09/04/23 13:34 Lab Results 09/04/23 09/04/23 09/04/23 Range/Units 13:34 13:34 15:03 WBC 3.9 (3.8-10.6) k/uL RBC 4.62 (3.80-5.40) m/uL Hgb 14.1 (11.4-16.0) gm/dL Hct 42.6 (34.0-46.0) % MCV 92.3 (80.0-100.0) fL MCH 30.5 (25.0-35.0) pg MCHC 33.1 (31.0-37.0) g/dL RDW 14.0 (11.5-15.5) % Plt Count 301 (150-450) k/uL MPV 8.3 Neutrophils % (Manual) 41 % Lymphocytes % (Manual) 31 % Monocytes % (Manual) 20 % Eosinophils % (Manual) 8 % Neutrophils # (Manual) 1.60 (1.3-7.7) k/uL Lymphocytes # (Manual) 1.21 (1.0-4.8) k/uL Monocytes # (Manual) 0.78 (0-1.0) k/uL Eosinophils # (Manual) 0.31 (0-0.7) k/uL Nucleated RBCs 0 (0-0) /100 WBC Manual Slide Review Performed Anisocytosis (manual) Present Sodium 135 L (137-145) mmol/L Potassium 3.8 (3.5-5.1) mmol/L Chloride 105 (98-107) mmol/L Carbon Dioxide 20 L (22-30) mmol/L Anion Gap 10 mmol/L BUN 14 (7-17) mg/dL Creatinine 0.52 (0.52-1.04) mg/dL Est GFR (CKD-EPI)AfAm >90 (>60 ml/min/1.73 sqM) Est GFR (CKD-EPI)NonAf >90 (>60 ml/min/1.73 sqM) Glucose 187 H (74-99) mg/dL Calcium 9.9 (8.4-10.2) mg/dL Total Bilirubin 0.7 (0.2-1.3) mg/dL AST 57 H (14-36) U/L ALT 51 H (4-34) U/L Alkaline Phosphatase 196 H (38-126) U/L Total Protein 8.3 H (6.3-8.2) g/dL Albumin 4.4 (3.5-5.0) g/dL Amylase 61 (30-110) U/L Lipase 62 (23-300) U/L Urine Color Yellow Urine Appearance Cloudy H (Clear) Urine pH 6.5 (5.0-8.0) Ur Specific Mad[place] 1.024 (1.001-1.035) Urine Protein Trace H (Negative) Urine Glucose (UA) Negative (Negative) Urine Ketones Negative (Negative) Urine Blood Negative (Negative) Urine Nitrite Negative (Negative) Urine Bilirubin Negative (Negative) Urine Urobilinogen 2.0 (<2.0) mg/dL Ur Leukocyte Esterase Negative (Negative) Urine WBC 6 H (0-5) /hpf Ur Squamous Epith Cells 5 H (0-4) /hpf Urine Bacteria Moderate H (None) /hpf Urine Mucus Occasional H (None) /hpf Urine HCG, Qual (Not Detectd) 09/04/23 Range/Units 15:03 WBC (3.8-10.6) k/uL RBC (3.80-5.40) m/uL Hgb (11.4-16.0) gm/dL Hct (34.0-46.0) % MCV (80.0-100.0) fL MCH (25.0-35.0) pg MCHC (31.0-37.0) g/dL RDW (11.5-15.5) % Plt Count (150-450) k/uL MPV Neutrophils % (Manual) % Lymphocytes % (Manual) % Monocytes % (Manual) % Eosinophils % (Manual) % Neutrophils # (Manual) (1.3-7.7) k/uL Lymphocytes # (Manual) (1.0-4.8) k/uL Monocytes # (Manual) (0-1.0) k/uL Eosinophils # (Manual) (0-0.7) k/uL Nucleated RBCs (0-0) /100 WBC Manual Slide Review Anisocytosis (manual) Sodium (137-145) mmol/L Potassium (3.5-5.1) mmol/L Chloride (98-107) mmol/L Carbon Dioxide (22-30) mmol/L Anion Gap mmol/L BUN (7-17) mg/dL Creatinine (0.52-1.04) mg/dL Est GFR (CKD-EPI)AfAm (>60 ml/min/1.73 sqM) Est GFR (CKD-EPI)NonAf (>60 ml/min/1.73 sqM) Glucose (74-99) mg/dL Calcium (8.4-10.2) mg/dL Total Bilirubin (0.2-1.3) mg/dL AST (14-36) U/L ALT (4-34) U/L Alkaline Phosphatase (38-126) U/L Total Protein (6.3-8.2) g/dL Albumin (3.5-5.0) g/dL Amylase (30-110) U/L Lipase (23-300) U/L Urine Color Urine Appearance (Clear) Urine pH (5.0-8.0) Ur Specific Madeline (1.001-1.035) Urine Protein (Negative) Urine Glucose (UA) (Negative) Urine Ketones (Negative) Urine Blood (Negative) Urine Nitrite (Negative) Urine Bilirubin (Negative) Urine Urobilinogen (<2.0) mg/dL Ur Leukocyte Esterase (Negative) Urine WBC (0-5) /hpf Ur Squamous Epith Cells (0-4) /hpf Urine Bacteria (None) /hpf Urine Mucus (None) /hpf Urine HCG, Qual Not Detected (Not Detectd) Disposition Clinical Impression: Nausea & vomiting Disposition: HOME SELF-CARE Condition: Good Instructions (If sedation given, give patient instructions): Acute Nausea and V omiting (ED) Additional Instructions: Return to the emergency department if symptoms worsen or improve. Take Zofran as needed for nausea and vomiting. Recommend that you follow BRAT diet over the next few days. Prescriptions: Ondansetron Odt [Zofran Odt] 4 mg PO Q8HR PRN #10 tab PRN Reason: Nausea Is patient prescribed a controlled substance at d/c from ED?: No Referrals: None,Stated [Primary Care Provider] - 1-2 days Time of Disposition: 15:25
[2023-09-04] MEDS: PANTOPRAZOLE 40 MG/10 ML VIAL IVP STA (14:01)
[2023-09-04] MEDS: ONDANSETRON 4 MG/2 ML VIAL IVP STA (14:01)
[2023-09-04] MEDS: SODIUM CHLORIDE 0.9% 1,000 ML IV STA (14:01)
[2023-09-04 14:03] LABS: HCT 42.6 % (34.0-46.0); HGB 14.1 gm/dL (11.4-16.0); MCH 30.5 pg (25.0-35.0); MCHC 33.1 g/dL (31.0-37.0); MCV 92.3 fL (80.0-100.0); Mean Platelet Volume 8.3; Platelet Count 301 k/uL (150-450); RBC 4.62 m/uL (3.80-5.40); WBC 3.9 k/uL (3.8-10.6)
[2023-09-04 14:31] LABS: ALT 51 U/L (4-34); AST 57 U/L (14-36); African American GFR (CKD) >90 (>60 ml/min/1.73 sqM); Albumin 4.4 g/dL (3.5-5.0); Alkaline Phosphatase 196 U/L (38-126); Amylase 61 U/L (30-110); Anion Gap 10 mmol/L; Blood Urea Nitrogen 14 mg/dL (7-17); Calcium 9.9 mg/dL (8.4-10.2); Carbon Dioxide 20 mmol/L (22-30); Chloride 105 mmol/L (98-107); Glucose 187 mg/dL (74-99); Lipase 62 U/L (23-300); Non-African American GFR(CKD) >90 (>60 ml/min/1.73 sqM); Potassium 3.8 mmol/L (3.5-5.1); Sodium 135 mmol/L (137-145); Total Bilirubin 0.7 mg/dL (0.2-1.3); Total Protein 8.3 g/dL (6.3-8.2)
[2023-09-04 14:35] LABS: Eosinophils # (M) 0.31 k/uL (0-0.7); Lymphocytes # (M) 1.21 k/uL (1.0-4.8); Monocytes # (M) 0.78 k/uL (0-1.0); Neutrophils % (M) 41 %; Nucleated Red Blood Cells 0 /100 WBC (0-0); Total Cells Counted 100
[2023-09-04 14:38] LABS: Anisocytosis (M) Present
[2023-09-04 15:22] LABS: Appearance,Urine Cloudy (Clear); Bacteria,Urine Moderate /hpf; Bilirubin,Urine Negative (Negative); Blood,Urine Negative (Negative); Color,Urine Yellow; Glucose,Urine (UA) Negative (Negative); Ketones,Urine Negative (Negative); Leukocyte Esterase,Urine Negative (Negative); Mucus,Urine Occasional /hpf; Nitrite,Urine Negative (Negative); PH, Urine 6.5 (5.0-8.0); Protein,Urine Trace (Negative); Specific Gravity,Urine 1.024 (1.001-1.035); Squamous Epithelial Cell,Urine 5 /hpf (0-4); WBC,Urine 6 /hpf (0-5)
[2023-09-04 15:55] VITALS: BP 118/72; PULSE 72; RESP 18
== END 2023-09-04 15:55 | disposition home or self-care (01) ==
LOC: EC 13:09
DX: R11.2 Nausea with vomiting, unspecified (principal); R10.13 Epigastric pain; F12.90 Cannabis use, unspecified, uncomplicated; Z87.891 Personal history of nicotine dependence
CPT/HCPCS: 36415; 80053; 82150; 83690; 85025; 81001; 81025; 99284; 96374; 96375; 96361; J2405; J2470

== ENCOUNTER 2024-03-13 00:08 | Emergency (ER) | payer OTHER ==
--- NOTE | 2024-03-13 01:13 | ED ---
General Adult HPI - General Chief complaint: Chest Pain Stated complaint: back pain Time Seen by Provider: 03/13/24 01:10 Source: patient, RN notes reviewed Mode of arrival: ambulatory Limitations: no limitations - History of Present Illness Initial comments: 33-year-old female presenting for left breast pain x 3 days. Describes a warm, throbbing sensation underneath the left nipple. States she has had lumps in the left breast previously and underwent several mammograms which were negative. Last scan was about a year ago. Denies fevers, chills, vomiting. No other health conditions. She is not or breast-feeding. denies nipple discharge - Related Data Previous Rx's Medication Instructions Recorded Multivitamins, Thera [Multivitamin 1 each PO DAILY 30 Days #30 tab 04/11/22 (formulary)] Sulfamethox-Tmp 800-160Mg [Bactrim 1 each PO BID 3 Days #6 tab 04/11/22 DS 800-160 mg] Thiamine [Vitamin B-1] 100 mg PO DAILY 30 Days #30 tab 04/11/22 traZODone HCL [Desyrel] 150 mg PO HS 30 Days #30 tab 04/11/22 Ondansetron Odt [Zofran Odt] 4 mg PO Q8HR PRN #10 tab 09/04/23 Cephalexin [Keflex] 500 mg PO Q6HR #40 cap 03/13/24 Sulfamethox-Tmp 800-160Mg [Bactrim 1 each PO Q12HR #20 tab 03/13/24 Ds] Allergies Allergy/AdvReac Type Severity Reaction Status Date / Time No Known Allergies Allergy Verified 03/13/24 00:15 Review of Systems ROS Statement: Those systems with pertinent positive or pertinent negative responses have been documented in the HPI. ROS Other: All systems not noted in ROS Statement are negative. Past Medical History Past Medical History: No Reported History History of Any Multi-Drug Resistant Organisms: None Reported Past Surgical History: Cholecystectomy Past Anesthesia/Blood Transfusion Reactions: No Reported Reaction Past Psychological History: Anxiety, Bipolar, Depression Smoking Status: Current every day smoker Past Alcohol Use History: Occasional Past Drug Use History: Marijuana - Past Family History Father Family Medical History: No Reported History Mother Family Medical History: Unable to Obtain Brother(s) Family Medical History: No Reported History General Exam Limitations: no limitations General appearance: alert, in no apparent distress Head exam: Present: atraumatic, normocephalic, normal inspection Respiratory exam: Present: normal lung sounds bilaterally. Absent: respiratory distress, wheezes, rales, rhonchi, stridor Cardiovascular Exam: Present: regular rate, normal rhythm, normal heart sounds. Absent: systolic murmur, diastolic murmur, rubs, gallop, clicks Psychiatric exam: Present: normal affect, normal mood Skin exam: Present: warm, dry, intact, normal color, rash (3 x 3 cm area of e rythema, warmth, induration, and tenderness superior to left nipple and underneath the nipple. no fluctuant mass or drainage.) Course Vital Signs 03/13/24 00:15 Temperature 97.7 F Pulse Rate 123 H Respiratory 18 Rate Blood Pressure 113/79 O2 Sat by Pulse 96 Oximetry Medical Decision Making - Medical Decision Making Was pt. sent in by a medical professional or institution (, PA, PETROGRAPHY TEACHER, urgent care, hospital, or long term...) When possible be specific @ -No Did you speak to anyone other than the patient for history (EMS, parent, family, police, friend...)? What history was obtained from this source @ -No Did you review nursing and triage notes (agree or disagree)? Why? @ -I reviewed and agree with nursing and triage notes Were old charts reviewed (outside hosp., previous admission, EMS record, old EKG, old radiological studies, urgent care reports/EKG's, long term records)? Report findings @ -No old charts were reviewed Differential Diagnosis (chest pain, altered mental status, abdominal pain women, abdominal pain men, vaginal bleeding, weakness, fever, dyspnea, syncope, headache, dizziness, GI bleed, back pain, seizure, CVA, palpatations, mental health, musculoskeletal)? @ -Differential Musculoskeletal Cellulitis, mastitis, fibrocystic changes, tumor.... This is not meant to be in all inclusive list EKG interpreted by me (3pts min.). @ -None X-rays interpreted by me (1pt min.). @ -None done CT interpreted by me (1pt min.). @ -None done U/S interpreted by me (1pt. min.). @ -Ultrasound left breast reveals hypoechoic 1.1 x 4.2 cm nodule in subcutaneous tissues of the subareolar region at nipple What testing was considered but not performed or refused? (CT, X-rays, U/S, labs)? Why? @ -None What meds were considered but not given or refused? Why? @ -None Did you discuss the management of the patient with other professionals (professionals i.e. , PA, PETROGRAPHY TEACHER, lab, RT, psych nurse, social work associate, field sales representative, teacher, international first officer, family service caseworker)? Give summary @ -No Was smoking cessation discussed for >3mins.? @ -No Was critical care preformed (if so, how long)? @ -No Were there social determinants of health that impacted care today? How? (Homelessness, low income, unemployed, alcoholism, drug addiction, transportation, low edu. Level, literacy, decrease access to med. care, correction, rehab)? @ -No Was there de-escalation of care discussed even if they declined (Discuss DNR or withdrawal of care, Hospice)? DNR status @ -No What co-morbidities impacted this encounter? (DM, HTN, Smoking, COPD, CAD, Cancer, CVA, ARF, Chemo, Hep., AIDS, mental health diagnosis, sleep apnea, morbid obesity)? @ -None Was patient admitted / discharged? Hospital course, mention meds given and route, prescriptions, significant lab abnormalities, going to OR and other pertinent info. @ -33 year-old female presenting for left breast pain x 3 days. Patient is tach ycardic, otherwise vitals within acceptable limits. On examination there is an area of warmth, induration, erythema, and tenderness superior to the left nipple. No nipple drainage. No fluctuant masses. Ultrasound left breast hypoechoic 1.1 x 4 x 2 cm nodule in subcutaneous tissues of subareolar region of blood. Discussed findings with patient. Ultrasound findings are nonspecific however physical examination consistent with infection therefore we will start patient on antibiotics. Will start Keflex and Bactrim. Advised close follow-up with Dr. Servin for further evaluation. Appropriate return precautions and supportive care discussed. Case was discussed with the ED attending Dr. Mendez Undiagnosed new problem with uncertain prognosis? @ -No Drug Therapy requiring intensive monitoring for toxicity (Heparin, Nitro, Insulin, Cardizem)? @ -No Were any procedures done? @ -No Diagnosis/symptom? @ -Left breast abscess Acute, or Chronic, or Acute on Chronic? @ -Acute Uncomplicated (without systemic symptoms) or Complicated (systemic symptoms)? @ -Uncomplicated Side effects of treatment? @ -No Exacerbation, Progression, or Severe Exacerbation? @ -No Poses a threat to life or bodily function? How? (Chest pain, [place], [place], pneumonia, PE, COPD, DKA, ARF, appy, cholecystitis, CVA, Diverticulitis, Homicidal, Suicidal, threat to staff... and all critical care pts) @ -Not at this time Disposition Clinical Impression: Abscess of left breast Disposition: HOME SELF-CARE Condition: Stable Instructions (If sedation given, give patient instructions): Abscess (ED) Additional Instructions: Take Keflex and Bactrim as prescribed. Apply warm compresses to affected area. Follow-up with Dr. Servin. Please return to the Emergency Department if symptoms worsen or any other concerns. Prescriptions: Sulfamethox-Tmp 800-160Mg [Bactrim Ds] 1 each PO Q12HR #20 tab Cephalexin [Keflex] 500 mg PO Q6HR #40 cap Is patient prescribed a controlled substance at d/c from ED?: No Referrals: None,Stated [Primary Care Provider] - 1-2 days Time of Disposition: 04:11
[2024-03-13] MEDS: IBUPROFEN 600 MG TAB PO STA (01:27)
--- NOTE | 2024-03-13 03:49 | US ---
EXAM: US Left Breast, Limited CLINICAL HISTORY: US Reason: mass on breast TECHNIQUE: Limited real time ultrasound of the left breast with image documentation, including axilla when performed. COMPARISON: No relevant prior studies available. FINDINGS: Left breast: There is a hypoechoic lobular 1.1 x 1.7 cm nodule in the subcutaneous tissues of the subareolar region at the nipple. Axillary adenopathy: There is a lymph node in the left axilla measuring 8 mm short axis diameter which is within normal limits. IMPRESSION: There is a hypoechoic lobular 1.1 x 1.7 cm nodule in the subcutaneous tissues of the subareolar region at the nipple. This is nonspecific and could be either benign or malignant. Recommend complete evaluation in a dedicated breast center with bilateral mammogram. Additional workup is required.
[2024-03-13 04:13] VITALS: BP 103/64; PULSE 82; RESP 16; TEMP 98.3
[2024-03-13] MEDS: ACETAMINOPHEN TAB 500 MG TAB PO STA (04:24)
[2024-03-13] MEDS: CEPHALEXIN 500 MG CAP PO STA (04:24)
[2024-03-13] MEDS: SULFAMETHOX-TMP 800-160MG 1 EACH TAB PO STA (04:24)
== END 2024-03-13 04:29 | disposition home or self-care (01) ==
LOC: EC 00:08
DX: N61.1 Abscess of the breast and nipple (principal); F17.200 Nicotine dependence, unspecified, uncomplicated
CPT/HCPCS: 99285

== ENCOUNTER → 2024-04-28 | Outpatient (CLI) | payer OTHER ==
[2024-04-28 15:27] VITALS: BP 119/84; PULSE 103; RESP 17; TEMP 98.4
--- NOTE | 2024-04-28 15:53 | P.GSCN ---
History of Present Illness Consult date: 04/28/24 Reason for Consult: breast abscess History of present illness: Areli is a 33 year old female seen in consultation from the ER regarding a left breast abscess. She was seen in the ER on 03-13-24 with a warm throbbing sensation under the left nipple. She had an ultrasound done which showed a 1.1 by 1.7 cm lesion in the subQ tissues of the left subaerolar region. She was treated with kefle and bactrim. The swelling went down but there is still a mass under her nipople. The mass has not changed. No fever or chills. She has not had any drainage. She has had the nodule for about 3 years. She has not had any surgery on the area. Before it got swollen it got hit really hard, with a toy. Caffeine: pop 1 can/day nicotine: 1 PPD for 5 months chocolate: occasional BCP: none hormones: none Family History: none Hormonal History: menarche: 14 Go periods regular, LMP 1 month ago Surgical History: gallbaldder Medical History: none Social History: nicotine: 1 PPD alcohol: none marijuana: occasional Review of Systems - Constitutional Denies fever, Denies weight loss - EENT Eyes: denies blurred vision Ears: deny: decreased hearing, tinnitus Ears, nose, mouth and throat: Denies dysphagia - Breasts bilateral: as per HPI - Cardiovascular Denies chest pain, Denies shortness of breath - Respiratory Denies cough, Denies 7 - Gastrointestinal Reports as per HPI - Genitourinary Genitourinary: Denies dysuria, Denies hematuria Menstruation: Reports period normal - Musculoskeletal Reports as per HPI - Integumentary Integumentary Comment(s): psoriasis Denies rash, Denies unusual bruising - Neurological Reports headaches, Denies syncope - Psychiatric Reports anxiety, Reports depression - Endocrine Reports fatigue, Reports weight change - Hematologic/Lymphatic Denies easy bleeding, Denies easy bruising - Allergic/Immunologic Reports as per HPI Past Medical History Past Medical History: No Reported History History of Any Multi-Drug Resistant Organisms: None Reported Past Surgical History: Cholecystectomy Past Anesthesia/Blood Transfusion Reactions: No Reported Reaction Past Psychological History: Anxiety, Bipolar, Depression Smoking Status: Current every day smoker Past Alcohol Use History: Occasional Past Drug Use History: Marijuana - Past Family History Father Family Medical History: No Reported History Mother Family Medical History: Unable to Obtain Brother(s) Family Medical History: No Reported History Medications and Allergies Home Medications Medication Instructions Recorded Confirmed Type No Known Home Medications 04/28/24 04/28/24 History Allergies Allergy/AdvReac Type Severity Reaction Status Date / Time No Known Allergies Allergy Verified 04/28/24 15:24 Surgical - Exam Vital Signs Temp Pulse Resp BP Pulse Ox 98.4 F 103 H 17 119/84 98 04/28/24 15:24 04/28/24 15:24 04/28/24 15:24 04/28/24 15:24 04/28/24 15:24 - General no distress - Eyes normal ocular movement - Neck trachea midline - Respiratory normal respiratory effort, clear to auscultation - Cardiovascular Rhythm: regular Heart Sounds: normal: S1, S2 - Abdomen Abdomen: soft, non tender, no guarding, no rigid, no rebound - Integumentary normal turgor - Neurologic no disoriented, no combative - Musculoskeletal normal gait - Psychiatric oriented to time, oriented to person, oriented to place, speech is normal, memory intact Breast Exam: BRA: large sports bra inspection: Bilateral grade 2 ptosis Palpation: Right breast: Multi positional exam no dominant masses or nodules of concern Right axilla: No adenopathy of concern Left breast: Multi positional exam increased nodularity posterior to the nipple areolar complex, with examination there is some white discharge from the central portion of the nipple Left axilla: No adenopathy of concern Results Ultrasound from 03-13-2024 results reviewed 1.1 x 1.7 cm nodule in the subcutaneous tissue of the subareolar region in the left breast was identified Assessment and Plan Assessment: Impression: Partially treated left breast abscess Plan: Bilateral mammogram Left breast ultrasound Follow-up after these are done Patient does not have a primary care Dr. at this time
== END ==
LOC: WWCWWP 15:09
PROVIDERS: ATTEND Surgery
DX: Z12.31 Encounter for screening mammogram for malignant neoplasm of breast (principal); N61.1 Abscess of the breast and nipple; F12.90 Cannabis use, unspecified, uncomplicated

== ENCOUNTER → 2024-06-06 | Outpatient (CLI) | payer OTHER ==
--- NOTE | 2024-06-06 11:20 | MM ---
Reason for Exam: Clinical finding. Last mammogram was performed 1 year(s) and 6 month(s) ago. Patient History: Menarche at age 11. Last menstrual period: 05/24/2024 Risk Values: Venus 5 year model risk: 0.3%. NCI Lifetime model risk: 9.8%. Prior Study Comparison: 07/30/2021 Bilateral Diagnostic Mammogram, Unknown. 08/06/2021 Bilateral Diagnostic Mammogram, Unknown. 12/18/2022 Left Diagnostic Mammogram, Unknown. 03/13/2024 Left US breast limited [facility], [facility]. Tissue Density: The breasts are extremely dense, which lowers the sensitivity of mammography. Findings: Analyzed By CAD. No suspicious new mass or worrisome group of microcalcification clearly seen in either breast. Overall Assessment: Incomplete: need additional imaging evaluation, BI-RAD 0 Management: Diagnostic Breast Ultrasound of the left breast. Targeted ultrasound focal pain in left breast and prior abnormal ultrasound. Results were given to the patient verbally at the time of exam. Patient should continue monthly self-breast exams. A clinical breast exam by your physician is recommended on an annual basis. This exam should not preclude additional follow-up of suspicious palpable abnormalities. Note on Venus scores and lifetime risk: 1. A Venus score greater than 3% is considered moderate risk. If this is the case, consider specialist referral to assess eligibility for a risk reducing agent. 2. If overall lifetime risk for the development of breast cancer is 20% or higher, the patient may qualify for future screening with alternating mammogram and breast MRI. [facility], , 06/06/2024 11:16 AM. Electronically signed and approved by: Jorge Asher M.D.
--- NOTE | 2024-06-06 11:48 | USB ---
Reason for Exam: Clinical finding. Patient History: Menarche at age 11. Risk Values: Venus 5 year model risk: 0.3%. NCI Lifetime model risk: 9.8%. Technique: Method: Targeted. Prior Study Comparison: 07/30/2021 Bilateral Diagnostic Mammogram, Unknown. 08/06/2021 Bilateral Diagnostic Mammogram, Unknown. 12/18/2022 Left Diagnostic Mammogram, Unknown. Findings: The area of palpable concern of the left breast, the axilla of the left breast and the retroareolar of the left breast were scanned. Targeted ultrasound shows a 1.1 x 0.5 x 0.9 cm heterogeneous hypoechoic area subareolar region with some surrounding vascularity on today's study. This is slightly smaller in size versus prior ultrasound March 13. Suspect resolving infectious process. No new concerning masses. There are 2 benign-appearing lymph nodes were marked by technologist in the left axilla. Overall Assessment: Probably benign, BI-RAD 3 Management: Diagnostic Breast Ultrasound of the left breast in 6 months. Manage patient symptoms clinically. Precautionary short term follow-up diagnostic left breast ultrasound to ensure improving or resolving findings. A clinical breast exam by your physician is recommended on an annual basis and results should be correlated with mammographic findings. This exam should not preclude additional follow-up of suspicious palpable abnormalities. Results were given to the patient verbally at the time of exam. [facility], , 06/06/2024 11:45 AM. Electronically signed and approved by: Jorge Asher M.D.
== END | disposition home or self-care (01) ==
LOC: RADMAMWWP 10:47
PROVIDERS: ATTEND Surgery
DX: R92.343 Mammographic extreme density, bilateral breasts (principal); N64.52 Nipple discharge
CPT/HCPCS: 77062; 77066

== ENCOUNTER 2024-06-13 17:40 | Emergency (ER) | payer OTHER ==
--- NOTE | 2024-06-13 18:54 | ED ---
Skin/Abscess/FB HPI - General Chief complaint: Skin/Abscess/Foreign Body Stated complaint: skin Time Seen by Provider: 06/13/24 17:58 Source: patient, RN notes reviewed Mode of arrival: ambulatory Limitations: no limitations - History of Present Illness Initial comments: 33-year female no reported medical history presenting to emergency department with left breast discomfort. Patient states that approximately 3 months ago she was diagnosed with a breast infection and was started on antibiotics that helped to heal the infection. Patient had an outpatient mammogram On 06/06/24 and states that the next day she began to experience erythema, swelling and pain of the left breast that was similar as when she had a infection a few months ago. She denies nipple discharge, purulence, fevers, chills, nausea, vomiting. Patient is scheduled for her first appointment with breast specialist this Thursday. Denies previous breast surgeries or history of breast cancer. - Related Data Previous Rx's Medication Instructions Recorded Cephalexin [Keflex] 500 mg PO Q6HR #40 cap 06/13/24 Ibuprofen [Motrin] 800 mg PO Q6HR #30 tab 06/13/24 Sulfamethox-Tmp 800-160Mg [Bactrim 1 each PO Q12HR #20 tab 06/13/24 Ds] Allergies Allergy/AdvReac Type Severity Reaction Status Date / Time No Known Allergies Allergy Verified 06/13/24 18:14 Review of Systems ROS Statement: Those systems with pertinent positive or pertinent negative responses have been documented in the HPI. ROS Other: All systems not noted in ROS Statement are negative. Past Medical History Past Medical History: No Reported History History of Any Multi-Drug Resistant Organisms: None Reported Past Surgical History: Cholecystectomy Past Anesthesia/Blood Transfusion Reactions: No Reported Reaction Past Psychological History: Anxiety, Bipolar, Depression Smoking Status: Current every day smoker Past Alcohol Use History: Occasional Past Drug Use History: Marijuana - Past Family History Father Family Medical History: No Reported History Mother Family Medical History: Unable to Obtain Brother(s) Family Medical History: No Reported History General Exam Limitations: no limitations ENT exam: Present: normal exam, mucous membranes moist Respiratory exam: Present: normal lung sounds bilaterally. Absent: respiratory distress, wheezes, rales, rhonchi, stridor Cardiovascular Exam: Present: regular rate, normal rhythm, normal heart sounds. Absent: systolic murmur, diastolic murmur, rubs, gallop, clicks GI/Abdominal exam: Present: soft, normal bowel sounds. Absent: distended, tenderness, guarding, rebound, rigid Extremities exam: Present: normal inspection, full ROM, normal capillary refill. Absent: tenderness, pedal edema, joint swelling, calf tenderness Back exam: Present: normal inspection Skin exam: Present: warm, dry, erythema, other (left breast at 12 o'clock position over the areola area of warmth and mild fluctuance, no nipple discharge or induration. ) Course Vital Signs 06/13/24 06/13/24 18:11 20:34 Temperature 98.1 F 98.7 F Pulse Rate 117 H 100 Respiratory 15 20 Rate Blood Pressure 103/55 107/66 O2 Sat by Pulse 97 95 Oximetry Medical Decision Making - Medical Decision Making Was pt. sent in by a medical professional or institution (Dr. PA, MICROARRAY ANALYST, urgent care, hospital, or fpc...) When possible be specific @ -No Did you speak to anyone other than the patient for history (EMS, parent, family, police, friend...)? What history was obtained from this source @ -No Did you review nursing and triage notes (agree or disagree)? Why? @ -I reviewed and agree with nursing and triage notes Were old charts reviewed (outside hosp., previous admission, EMS record, old EKG, old radiological studies, urgent care reports/EKG's, fpc records)? Report findings @ -Reviewed patient's emergency department visit note from 03/14/2024 where she presented with left breast pain over the past 3 days her ultrasounds completed alternatively, present however the patient was diagnosed with breast abscess and started on antibiotics. Mammogram completed 11/06/2024 bilateral dense breast and inflammation, recommend follow-up with breast surgeon. With no suspicious new mass or worrisome group of microcalcifications clearly seen in either breast Differential Diagnosis (chest pain, altered mental status, abdominal pain women, abdominal pain men, vaginal bleeding, weakness, fever, dyspnea, syncope, headache, dizziness, GI bleed, back pain, seizure, CVA, palpatations, mental health, musculoskeletal)? @ -[Breast abscess, cellulitis, mastitis, this list is not all inclusive EKG interpreted by me (3pts min.). @ -None X-rays interpreted by me (1pt min.). @ -None done CT interpreted by me (1pt min.). @ -None done U/S interpreted by me (1pt. min.). @ -Breast ultrasound results revealed a likely developing abscess with underlying surrounding erythema, recommend follow-up with breast surgeon. What testing was considered but not performed or refused? (CT, X-rays, U/S, labs)? Why? @ -None What meds were considered but not given or refused? Why? @ -None Did you discuss the management of the patient with other professionals (professionals i.e. DrJulianne, PA, MICROARRAY ANALYST, lab, RT, psych nurse, social work coordinator, senior hr generalist, teacher, protocol officer, top case assembler)? Give summary @ -No Was smoking cessation discussed for >3mins.? @ -No Was critical care preformed (if so, how long)? @ -No Were there social determinants of health that impacted care today? How? (Homelessness, low income, unemployed, alcoholism, drug addiction, transportation, low edu. Level, literacy, decrease access to med. care, alf, rehab)? @ -No Was there de-escalation of care discussed even if they declined (Discuss DNR or withdrawal of care, Hospice)? DNR status @ -No What co-morbidities impacted this encounter? (DM, HTN, Smoking, COPD, CAD, Cancer, CVA, ARF, Chemo, Hep., AIDS, mental health diagnosis, sleep apnea, morbid obesity)? @ -None Was patient admitted / discharged? Hospital course, mention meds given and route, prescriptions, significant lab abnormalities, going to OR and other pertinent info. @ -[Discharge. 33-year-old female presenting with left breast pain. There is a noted area of erythema with mild fluctuance with no induration or discharge. Concern for overlying infection. Breast ultrasound reveals likely forming breast abscess. Patient will be treated with Rocephin and outpatient prescription for Keflex and Bactrim. Patient does have an appointment scheduled with breast surgeon. Return parameters discussed. Case discussed with Dr. Huntley Undiagnosed new problem with uncertain prognosis? @ -No Drug Therapy requiring intensive monitoring for toxicity (Heparin, Nitro, Insulin, Cardizem)? @ -No Were any procedures done? @ -No Diagnosis/symptom? @ -Cellulitis of breast Acute, or Chronic, or Acute on Chronic? @ -Acute Uncomplicated (without systemic symptoms) or Complicated (systemic symptoms)? @ -Uncomplicated Side effects of treatment? @ -No Exacerbation, Progression, or Severe Exacerbation? @ -No Poses a threat to life or bodily function? How? (Chest pain, [place], [place], pneumonia, PE, COPD, DKA, ARF, appy, cholecystitis, CVA, Diverticulitis, Homicidal, Suicidal, threat to staff... and all critical care pts) @ -No Disposition Clinical Impression: Cellulitis of breast Disposition: HOME SELF-CARE Condition: Good Instructions (If sedation given, give patient instructions): Abscess (ED) Additional Instructions: Please return to the Emergency Department if symptoms worsen or any other concerns. Continue warm compresses over the affected area at least 4 times a day. Complete both antibiotics, Keflex and Bactrim, as prescribed. Follow-up as scheduled with breast surgeon on Thursday. Prescriptions: Sulfamethox-Tmp 800-160Mg [Bactrim Ds] 1 each PO Q12HR #20 tab Cephalexin [Keflex] 500 mg PO Q6HR #40 cap Ibuprofen [Motrin] 800 mg PO Q6HR #30 tab Is patient prescribed a controlled substance at d/c from ED?: No Referrals: Nonstaff,Physician [REFERRING] - 1-2 days Time of Disposition: 20:10
[2024-06-13] MEDS: Acetaminophen-Codeine 300-30mg TAB PO STA (19:48)
[2024-06-13] MEDS: cefTRIAXone 1,000 MG VIAL (IM USE) IM STA (20:18)
[2024-06-13 20:35] VITALS: BP 107/66; PULSE 100; RESP 20; TEMP 98.7
--- NOTE | 2024-06-14 07:09 | USB ---
Reason for Exam: Clinical finding. Patient History: Menarche at age 11. Risk Values: Venus 5 year model risk: 0.3%. NCI Lifetime model risk: 9.8%. Prior Study Comparison: 08/06/2021 Bilateral Diagnostic Mammogram, Unknown. 12/18/2022 Left Diagnostic Mammogram, Unknown. 06/06/2024 Bilateral MG 3D diag mammo w/cad [facility], [facility]. Findings: The area of concern of the left breast, the axilla of the left breast, and the retroareolar region of the left breast were scanned. There is a 2.9 x 1.3 x 3.7cm hypoechoic, heterogeneous area with vascularity seen within the subareolar region, previously measured 1.2 x 0.5 x 0.9cm on 06/06/24. There are multiple lymph nodes seen in the left axilla, largest with a cortex measuring 5mm . Overall Assessment: Benign, BI-RAD 2 Management: Screening Mammogram of both breasts at age 38. Findings compatible with infection with likely abscess formation. Surgical consultation recommended for management. A clinical breast exam by your physician is recommended on an annual basis and results should be correlated with mammographic findings. This exam should not preclude additional follow-up of suspicious palpable abnormalities. Results were given to the patient verbally at the time of exam. [facility], , 06/13/2024 8:00 PM. Electronically signed and approved by: Srini Gomez DO
== END 2024-06-13 20:34 | disposition home or self-care (01) ==
LOC: EC 17:40
DX: N61.0 Mastitis without abscess (principal); F17.200 Nicotine dependence, unspecified, uncomplicated
CPT/HCPCS: 76642; 99283; 96372; J0696

== ENCOUNTER → 2024-06-17 | Outpatient (CLI) | payer OTHER ==
[2024-06-17 12:39] VITALS: BP 113/84; PULSE 81; RESP 16; TEMP 98.1
--- NOTE | 2024-06-17 13:15 | P.PN ---
Subjective Progress Note Date: 06/17/24 06-17-24 breast abscess History of present illness: Areli is a 33 year old female seen in consultation on 04-28-24 from the ER regarding a left breast abscess. She was seen in the ER on 03-13-24 with a warm throbbing sensation under the left nipple. She had an ultrasound done which showed a 1.1 by 1.7 cm lesion in the subQ tissues of the left subaerolar region. She was treated with kefle and bactrim. The swelling went down but there is still a mass under her nipople. The mass has not changed. No fever or chills. She has not had any drainage. She has had the nodule for about 3 years. She has not had any surgery on the area. Before it got swollen it got hit really hard, with a toy. bilatearl mammogram on 06-06-24 and ultrasound of the left breast: BIRAD 3 resolvind abscess left breast The spot in the left breast now red and painful, and swollen after the mammogram and ultrasound. She was seen in the ER on thu and given an antibiotic and put on two other Ab. She is on Bactrim and cephalexin. Not complaining of any fever or chills. Caffeine: pop 1 can/day nicotine: 1 PPD for 5 months chocolate: occasional BCP: none hormones: none Family History: none Hormonal History: menarche: 14 Go periods regular, LMP 1 month ago Surgical History: gallbaldder Medical History: none Social History: nicotine: 1 PPD alcohol: none marijuana: occasional Review of Systems - Constitutional Denies fever, Denies weight loss - EENT Eyes: denies blurred vision Ears: deny: decreased hearing, tinnitus Ears, nose, mouth and throat: Denies dysphagia - Breasts bilateral: as per HPI - Cardiovascular Denies chest pain, Denies shortness of breath - Respiratory Denies cough - Gastrointestinal Reports as per HPI - Genitourinary Genitourinary: Denies dysuria, Denies hematuria Menstruation: Reports period normal - Musculoskeletal Reports as per HPI - Integumentary Integumentary Comment(s): psoriasis Denies rash, Denies unusual bruising - Neurological Reports headaches, Denies syncope - Psychiatric Reports anxiety, Reports depression - Endocrine Reports fatigue, Reports weight change - Hematologic/Lymphatic Denies easy bleeding, Denies easy bruising - Allergic/Immunologic Reports as per HPI Past Medical History Past Medical History: No Reported History History of Any Multi-Drug Resistant Organisms: None Reported Past Surgical History: Cholecystectomy Past Anesthesia/Blood Transfusion Reactions: No Reported Reaction Past Psychological History: Anxiety, Bipolar, Depression Smoking Status: Current every day smoker Past Alcohol Use History: Occasional Past Drug Use History: Marijuana - Past Family History Father Family Medical History: No Reported History Mother Family Medical History: Unable to Obtain Brother(s) Family Medical History: No Reported History Medications and Allergies Home Medications Medication Instructions Recorded Confirmed Type No Known Home Medications 04/28/24 04/28/24 History Allergies Allergy/AdvReac Type Severity Reaction Status Date / Time No Known Allergies Allergy Verified 04/28/24 15:24 Objective - Vital Signs Vital signs: Vital Signs Temp 98.1 F 06/17/24 12:37 Pulse 81 06/17/24 12:37 Resp 16 06/17/24 12:37 BP 113/84 06/17/24 12:37 Pulse Ox 98 06/17/24 12:37 FiO2 Intake & Output 06/16/24 06/17/24 06/17/24 18:59 06:59 18:59 Weight 95.254 kg - Constitutional General appearance: Present: cooperative - EENT Eyes: Present: EOMI ENT: Present: hearing grossly normal - Neck Neck: Present: normal ROM - Respiratory Respiratory: bilateral: CTA - Cardiovascular Rhythm: regular Heart sounds: normal: S1, S2 - Integumentary Integumentary: Present: normal turgor - Musculoskeletal Musculoskeletal: Present: gait normal - Psychiatric Psychiatric: Present: A&O x's 3, appropriate affect, intact judgment & insight - Additional findings Additional findings: Breast Exam: BRA: large sports bra inspection: Bilateral grade 2 ptosis Palpation: Right breast: Multi positional exam no dominant masses or nodules of concern Right axilla: No adenopathy of concern Left breast: Multi positional exam increased nodularity posterior to the nipple areolar complex, with fluctuance on examination superior to that area, erythema at that site as well Left axilla: No adenopathy of concern Assessment and Plan Assessment: Impression: Breast left abscess Ultrasound left breast 06-06-2024 partially treated abscess left breast Plan: I&D area of concern left breast Following consent the area of concern in the left breast was prepped using chlorhexidine. 5 cc of 1% lidocaine were used to anesthetize the area of greatest fluctuance. A #11 scalpel was used to make a small puncture into the area of greatest fluctuance. Approximately 10 cc of purulent fluid was drained. Cultures were obtained. The wound was well irrigated. The wound was packed. Patient tolerated this in stable condition The patient is taught how to do wound packing she will pack this daily She will follow-up next week If she develops any fever or chills she will go to the emergency room
== END ==
LOC: WWCWWP 10:59
PROVIDERS: ATTEND Surgery
DX: N61.1 Abscess of the breast and nipple (principal); F12.90 Cannabis use, unspecified, uncomplicated; F17.210 Nicotine dependence, cigarettes, uncomplicated; Z79.2 Long term (current) use of antibiotics
CPT/HCPCS: 87070; 87075; 87205

== ENCOUNTER → 2024-06-21 | Outpatient (CLI) | payer OTHER ==
[2024-06-21 07:49] VITALS: BP 136/56; PULSE 87; RESP 18; TEMP 97.6
--- NOTE | 2024-06-21 07:58 | P.PN ---
Subjective Progress Note Date: 06/21/24 Areli is a 33 year old female seen in consultation on 04-28-24 from the ER regarding a left breast abscess. She was seen in the ER on 03-13-24 with a warm throbbing sensation under the left nipple. She had an ultrasound done which showed a 1.1 by 1.7 cm lesion in the subQ tissues of the left subaerolar region. She was treated with kefle and bactrim. The swelling went down but there is still a mass under her nipople. The mass has not changed. No fever or chills. She has not had any drainage. She has had the nodule for about 3 years. She has not had any surgery on the area. Before it got swollen it got hit really hard, with a toy. bilatearl mammogram on 06-06-24 and ultrasound of the left breast: BIRAD 3 resolvind abscess left breast The spot in the left breast now red and painful, and swollen after the mammogram and ultrasound. She was seen in the ER on thu and given an antibiotic and put on two other Ab. She is on Bactrim and cephalexin. Not complaining of any fever or chills. On 06 17 24 incision and drainage of an abscess was performed in the left breast. She comes today for evaluation. Cultures were obtained on 06 17 24. The Gram stain revealed many PMNs and rare gram-positive's with no growth after 48 hours, no anaerobes were isolated. Caffeine: pop 1 can/day nicotine: 1 PPD for 5 months chocolate: occasional BCP: none hormones: none Family History: none Hormonal History: menarche: 14 Go periods regular, LMP 1 month ago Surgical History: gallbaldder Medical History: none Social History: nicotine: 1 PPD alcohol: none marijuana: occasional Review of Systems - Constitutional Denies fever, Denies weight loss - EENT Eyes: denies blurred vision Ears: deny: decreased hearing, tinnitus Ears, nose, mouth and throat: Denies dysphagia - Breasts bilateral: as per HPI - Cardiovascular Denies chest pain, Denies shortness of breath - Respiratory Denies cough - Gastrointestinal Reports as per HPI - Genitourinary Genitourinary: Denies dysuria, Denies hematuria Menstruation: Reports period normal - Musculoskeletal Reports as per HPI - Integumentary Integumentary Comment(s): psoriasis Denies rash, Denies unusual bruising - Neurological Reports headaches, Denies syncope - Psychiatric Reports anxiety, Reports depression - Endocrine Reports fatigue, Reports weight change - Hematologic/Lymphatic Denies easy bleeding, Denies easy bruising - Allergic/Immunologic Reports as per HPI Past Medical History Past Medical History: No Reported History History of Any Multi-Drug Resistant Organisms: None Reported Past Surgical History: Cholecystectomy Past Anesthesia/Blood Transfusion Reactions: No Reported Reaction Past Psychological History: Anxiety, Bipolar, Depression Smoking Status: Current every day smoker Past Alcohol Use History: Occasional Past Drug Use History: Marijuana - Past Family History Father Family Medical History: No Reported History Mother Family Medical History: Unable to Obtain Brother(s) Family Medical History: No Reported History Medications and Allergies Home Medications Medication Instructions Recorded Confirmed Type No Known Home Medications 04/28/24 04/28/24 History Allergies Allergy/AdvReac Type Severity Reaction Status Date / Time No Known Allergies Allergy Verified 04/28/24 15:24 Objective - Vital Signs Vital signs: Intake & Output 06/20/24 06/21/24 06/21/24 18:59 06:59 18:59 Weight 95.254 kg - Constitutional General appearance: Present: cooperative - EENT ENT: Present: hearing grossly normal - Neck Neck: Present: normal ROM - Respiratory Respiratory: bilateral: CTA - Cardiovascular Heart sounds: normal: S1, S2 - Integumentary Integumentary Comment(s): This time there is some residual swelling near the area where it is being packed but no definitive abscess is present the erythema has resolved the tenderness is much improved Assessment and Plan Assessment: Impression: Resolving left breast periareolar abscess Plan: Continue present care The patient does not need surgical intervention today She will follow-up in 2 weeks She will follow-up sooner any fever chills or increased in swelling or erythema
== END ==
LOC: WWCWWP 07:37
PROVIDERS: ATTEND Surgery
DX: Z12.31 Encounter for screening mammogram for malignant neoplasm of breast (principal); N61.1 Abscess of the breast and nipple; F17.210 Nicotine dependence, cigarettes, uncomplicated

== ENCOUNTER → 2024-07-07 | Outpatient (CLI) | payer OTHER ==
[2024-07-07 15:51] VITALS: BP 118/76; PULSE 89; RESP 16; TEMP 97.9
--- NOTE | 2024-07-07 16:05 | P.PN ---
Subjective Progress Note Date: 07/07/24 06/21/24 Areli is a 33 year old female seen in consultation on 04-28-24 from the ER regarding a left breast abscess. She was seen in the ER on 03-13-24 with a warm throbbing sensation under the left nipple. She had an ultrasound done which showed a 1.1 by 1.7 cm lesion in the subQ tissues of the left subaerolar region. She was treated with keflex and bactrim. The swelling went down but there is still a mass under her nipople. The mass has not changed. No fever or chills. She has not had any drainage. She has had the nodule for about 3 years. She has not had any surgery on the area. Before it got swollen it got hit really hard, with a toy. bilateral mammogram on 06-06-24 and ultrasound of the left breast: BIRAD 3 resolving abscess left breast The spot in the left breast now red and painful, and swollen after the mammogram and ultrasound. She was seen in the ER on thu and given an antibiotic and put on two other Ab. She is on Bactrim and cephalexin. Not complaining of any fever or chills. On 06 17 24 incision and drainage of an abscess was performed in the left breast. She comes today for evaluation. Cultures were obtained on 06 17 24. The Gram stain revealed many PMNs and rare gram-positive's with no growth after 48 hours, no anaerobes were isolated. 07-07-24 Patient comes for evaluation of the left breast; she has persistent fullness behind the left nipple areolar complex bilateral mammogram 06-06-2024 led to a left breast ultrasound on the same date. The targeted ultrasound showed a 1.1 x 0.5 x 0.9 hypoechoic area in the subareolar region this was felt to be smaller versus prior ultrasound however suspected continued infectious process the area has not resolved despite the packing and the antibiotics and is still palpable for the patient. Caffeine: pop 1 can/day nicotine: 1 PPD for 5 months chocolate: occasional BCP: none hormones: none Family History: none Hormonal History: menarche: 14 Go periods regular, LMP 1 month ago Surgical History: gallbaldder Medical History: none Social History: nicotine: 1 PPD alcohol: none marijuana: occasional Review of Systems - Constitutional Denies fever, Denies weight loss - EENT Eyes: denies blurred vision Ears: deny: decreased hearing, tinnitus Ears, nose, mouth and throat: Denies dysphagia - Breasts bilateral: as per HPI - Cardiovascular Denies chest pain, Denies shortness of breath - Respiratory Denies cough - Gastrointestinal Reports as per HPI - Genitourinary Genitourinary: Denies dysuria, Denies hematuria Menstruation: Reports period normal - Musculoskeletal Reports as per HPI - Integumentary Integumentary Comment(s): psoriasis Denies rash, Denies unusual bruising - Neurological Reports headaches, Denies syncope - Psychiatric Reports anxiety, Reports depression - Endocrine Reports fatigue, Reports weight change - Hematologic/Lymphatic Denies easy bleeding, Denies easy bruising - Allergic/Immunologic Reports as per HPI Past Medical History Past Medical History: No Reported History History of Any Multi-Drug Resistant Organisms: None Reported Past Surgical History: Cholecystectomy Past Anesthesia/Blood Transfusion Reactions: No Reported Reaction Past Psychological History: Anxiety, Bipolar, Depression Smoking Status: Current every day smoker Past Alcohol Use History: Occasional Past Drug Use History: Marijuana - Past Family History Father Family Medical History: No Reported History Mother Family Medical History: Unable to Obtain Brother(s) Family Medical History: No Reported History Medications and Allergies Home Medications Medication Instructions Recorded Confirmed Type No Known Home Medications 04/28/24 04/28/24 History Allergies Allergy/AdvReac Type Severity Reaction Status Date / Time No Known Allergies Allergy Verified 04/28/24 15:24 Objective - Vital Signs Vital signs: Intake & Output 06/20/24 06/21/24 06/21/24 18:59 06:59 18:59 Weight 95.254 kg - Constitutional General appearance: Present: cooperative - EENT ENT: Present: hearing grossly normal - Neck Neck: Present: normal ROM - Respiratory Respiratory: bilateral: CTA - Cardiovascular Heart sounds: normal: S1, S2 - Integumentary Integumentary Comment(s): This time there is some residual swelling near the area where it is being packed but no definitive abscess is present the erythema has resolved the tenderness is much improved Assessment and Plan Assessment: Impression: Resolving left breast periareolar abscess Plan: Continue present care The patient does not need surgical intervention today She will follow-up in 2 weeks She will follow-up sooner any fever chills or increased in swelling or erythema Objective - Vital Signs Vital signs: Vital Signs Temp 97.9 F 07/07/24 15:47 Pulse 89 07/07/24 15:47 Resp 16 07/07/24 15:47 BP 118/76 07/07/24 15:47 Pulse Ox 95 07/07/24 15:47 FiO2 Intake & Output 07/06/24 07/07/24 07/07/24 18:59 06:59 18:59 Weight 93.894 kg - Constitutional General appearance: Present: cooperative - EENT Eyes: Present: EOMI ENT: Present: hearing grossly normal - Neck Neck: Present: normal ROM - Respiratory Respiratory: bilateral: CTA - Cardiovascular Rhythm: regular Heart sounds: normal: S1, S2 - Integumentary Integumentary: Present: normal turgor - Musculoskeletal Musculoskeletal: Present: gait normal - Psychiatric Psychiatric: Present: A&O x's 3, appropriate affect, intact judgment & insight - Additional findings Additional findings: Breast Exam: BRA: 38D Inspection: Open wound 12:00 area periareolar region left breast/packing being placed Palpation: Right breast: Multi positional exam no dominant masses or nodules of concern Right axilla: No adenopathy of concern Left breast: Multi positional exam open wound 12:00 periareolar region, fullness persistent behind the nipple areolar complex with drainage through the nipple Left axilla: No adenopathy of concern Assessment and Plan Assessment: Impression: chronic abcess left breast Plan: I&D left breast abcess in the OR Risk and benefits of the procedure were discussed with the patient. Risk include but are not limited to bleeding, infection, reaction to the anesthetic. There is a possibility that recurrent abscess could occur. She understands and wishes to proceed. Consent: I have discussed the risks, benefits and alternative therapies for the above-mentioned procedure and for both sedation/analgesia as well as necessary blood product administration, if indicated, as they pertain to this patient. The patient has indicated understanding and acceptance of the risks and procedures discussed.
== END ==
LOC: WWCWWP 14:47
PROVIDERS: ATTEND Surgery
DX: N61.1 Abscess of the breast and nipple (principal); F17.210 Nicotine dependence, cigarettes, uncomplicated; F12.90 Cannabis use, unspecified, uncomplicated

== ENCOUNTER 2024-07-12 14:20 | Day surgery (SDC) | payer OTHER ==
[~2024-07-12 14:20] MED LIST: LIDOCAINE 1% (10MG/ML) FOR IV START INTRADERMA PRN; METOCLOPRAMIDE 5 MG/ML 2 ML VIAL IVP PRN; Pre Op ABX Message 1 EACH MISC MISCELLANE ONE; fentaNYL (PF) 50 MCG/ML 2 ML AMP IV PRN
[2024-07-12] MEDS: IV FLUID CONTINUATION 1,000 ML IV ONE (14:39)
[2024-07-12] MEDS: ONDANSETRON 4 MG/2 ML VIAL IVP ONE (14:52)
[2024-07-12] MEDS: DEXAMETHASONE SOD PHOSPHATE 4 MG/ML 1 ML VIAL IV ONE (14:52)
[2024-07-12] MEDS: LACTATED RINGERS 1,000 ML IV SCH (14:52)
[2024-07-12] MEDS: HEPARIN SODIUM,PORCINE 5,000 UNIT/ML 1 ML VIAL SQ PRN (14:53)
[2024-07-12] MEDS: ACETAMINOPHEN TAB 500 MG TAB PO PRN (14:53)
[2024-07-12] MEDS: MIDAZOLAM 2 MG/2 ML VIAL IV ONE (14:59)
[2024-07-12] MEDS ORDERED: fentaNYL (PF) 50 MCG/ML 2 ML AMP ONE (15:09)
[2024-07-12] MEDS ORDERED: LIDOCAINE 1% INJ 10MG/ML (20 ML MDV) ONE (15:09)
[2024-07-12] MEDS ORDERED: PROPOFOL 10 MG/ML 20 ML VIAL IV ONE (15:09)
[2024-07-12] MEDS ORDERED: KETOROLAC 30 MG/ML 1 ML VIAL ONE (15:09)
[2024-07-12] MEDS: IV FLUID CONTINUATION 50 ML with ceFAZolin 2,000 MG IV ONE ×2 (15:17)
--- NOTE | 2024-07-12 15:54 | P.BCAON ---
Date of Procedure: 07/12/24 Preoperative Diagnosis: Chronic abscess/mass left breast Postoperative Diagnosis: Same Procedure(s) Performed: Drainage of abscess and excision of mass posterior to left nipple areolar complex Anesthesia: JESS Surgeon: Nidia Servin Estimated Blood Loss (ml): 3 IV fluids (ml): 500 Pathology: other (Breast tissue) Condition: stable Disposition: same day Indications for Procedure: Chronic abscess/mass posterior to left nipple areolar complex Operative Findings: Epithelialized track with swelling posterior to left nipple areolar complex Description of Procedure: The patient was brought to the operative suite and following induction of anesthesia the left breast was prepped and draped in a sterile fashion. The periareolar site where drainage was occurring was enlarged. This was brought d own to a palpable mass. The surrounding tissue was excised. The lesion was approximately 3 cm x 2 cm. This was consistent with an epithelialized tract leading out to the nipple complex. The specimen was removed. The wound was well irrigated. After assuring that hemostasis was attained it was again irrigated. Cultures aerobic and anaerobic were obtained. The skin incision was reinforced using a nylon suture. The wound was packed using moist 4 inch gauze. The patient tolerated the procedure in stable condition. All instrument and sponge counts were correct at the end of the case.
[2024-07-12 16:12] VITALS: TEMP 97.2
[2024-07-12] MEDS: HYDROmorphone 0.5 MG/0.5 ML SYRINGE IVP PRN (16:15)
[2024-07-12 17:39] VITALS: RESP 18
[2024-07-12 17:42] VITALS: BP 108/61; PULSE 82
== END 2024-07-12 17:32 | disposition home or self-care (01) ==
LOC: OR 14:20
PROVIDERS: ATTEND Surgery
DX: N60.12 Diffuse cystic mastopathy of left breast (principal)
CPT/HCPCS: 81025; 87070; 87205; 87075; 19120; J2250; J1644; J1100; J2405; J0690; J2003; J3010; J1885; J2704; J1171; 88307